=== PATIENT | male | born 1955 | race African-American/Black ===

== ENCOUNTER 2017-07-27 08:13 | Emergency (ER) | payer BC ==
--- NOTE | 2017-07-27 09:53 | ER Document Report ---
ED Head/Face/Scalp Injury - General Mode of Arrival: Ambulatory Information source: Patient - HPI Patient complains to provider of: Injury, Pain Injury to: Head Occurred: Just prior to arrival <JUANCARLOS OLSON - Last Filed: 07/27/17 12:09> <JOSH FRANKEL - Last Filed: 07/27/17 15:55> - General Chief Complaint: Head Injury Stated Complaint: HEAD INJURY Time Seen by Provider: 07/27/17 09:31 Notes: Patient is a 62-year-old male who presents to the emergency department today with complaints of right-sided facial pain after being head butted by a horse just prior to arrival. Patient states that he was feeding his horse and the horse usually swings his head from side to side playing with his food but the patient was unable to get out of the way fast enough. Patient states initially he had double vision, right-sided facial pain, and a slight headache. Patient states he does not really see a doctor very often so he is unsure of any underlying medical conditions that he may have. (JUANCARLOS OLSON) Past Medical History - General Information source: Patient - Social History Smoking Status: Never Smoker Cigarette use (# per day): No Frequency of alcohol use: None Drug Abuse: None Lives with: Family Family History: Reviewed & Not Pertinent - Past Medical History Cardiac Medical History: Reports: Hx Hypertension Past Surgical History: Reports: Hx Orthopedic Surgery <JUANCARLOS OLSON - Last Filed: 07/27/17 12:09> Review of Systems - Review of Systems Constitutional: No symptoms reported EENT: See HPI, Eye pain, Blurred vision, Double vision Cardiovascular: No symptoms reported Respiratory: No symptoms reported Gastrointestinal: No symptoms reported Genitourinary: No symptoms reported Male Genitourinary: No symptoms reported Musculoskeletal: No symptoms reported Skin: No symptoms reported Hematologic/Lymphatic: No symptoms reported Neurological/Psychological: See HPI, Headaches -: Yes All other systems reviewed and negative <JUANCARLOS OLSON - Last Filed: 07/27/17 12:09> Physical Exam <JUANCARLOS OLSON - Last Filed: 07/27/17 12:09> - HEENT Eyes: Other - The right eye has some edema to the upper eyelid. There is a rather large pterygium on the medial eye going almost the third [address] the way across the cornea from the medial edge. There is some injection or inflammation to the lateral sclera conjunctival region. After tetracaine and staining, there are several small, almost punctate areas of uptake along the inferior cornea--mostly from the middle toward the lateral inferior aspect. There is also a narrow 2 mm transverse region of uptake in the upper cornea just right of midline. <JOSH FRANKEL - Last Filed: 07/27/17 15:55> - Vital signs Vitals: Temp Pulse Resp BP Pulse Ox 97.7 F 75 18 249/94 H 99 07/27/17 08:20 07/27/17 08:20 07/27/17 08:20 07/27/17 08:20 07/27/17 08:20 - Notes Notes: Physical Exam: General: Alert, appears uncomfortable. HEENT: Normocephalic. PERRL. Extraocular movements intact. Oropharynx clear. Right sided facial swelling and tenderness over the right temporal area and zygomatic arch. pterygium over medial aspect of right eye, right eye is injected. after tetracaine, the patient states the double vision has subsided and now his vision is nearly back to normal, it is just minimally blurry. Neck: Supple. Non-tender. Respiratory: No respiratory distress. Clear and equal breath sounds bilaterally. Cardiovascular: Regular rate and rhythm. Abdominal: Normal Inspection. Non-tender. No distension. Normal Bowel Sounds. Back: Non-tender. No deformity or step off. Extremities: Moves all four extremities. Upper extremities: Normal inspection. Normal ROM. Lower extremities: Normal inspection. No edema. Normal ROM. Neurological: Normal cognition. AAOx4. Normal speech. Psychological: Normal affect. Normal Mood. Skin: Warm. Dry. Normal color. (JUANCARLOS OLSON) Course <JUANCARLOS OLSON - Last Filed: 07/27/17 12:09> <JOSH FRANKEL - Last Filed: 07/27/17 15:55> - Re-evaluation Re-evalutation: 07/27/17 11:39 PROCEEDURE: The left eye was examined using tetracaine and fluorescein stain. See the physical exam for details. The stain was irrigated out with 15 mL's of normal saline solution. Two Homatropine drops were placed on the right cornea. Two Ketorolac drops were placed in the right eye. 07/27/17 12:51 The patient was found to have quite high blood pressure. He was given 0.2 mg of clonidine in the emergency room. He is not on medications. He has not been to see a doctor in probably several years, but he reluctantly admits that he probably does have high blood pressure. He was discharged without getting a prescription of blood pressure medication due to some sudden surgeon chaos in the emergency room. I called the patient and told him what with wanted to do, he had not been to the pharmacy to fill his eyedrop prescription yet, so I informed him I would call in a prescription for him. I did call the [facility] pharmacy on [address], and called in a prescription for Norvasc 10 mg once daily #30 no refill. (JOSH FRANKEL) - Vital Signs Vital signs: Temp Pulse Resp BP Pulse Ox 98.0 F 85 16 180/75 H 100 07/27/17 12:09 07/27/17 12:09 07/27/17 12:09 07/27/17 12:09 07/27/17 12:09 Discharge <JUANCARLOS OLSON - Last Filed: 07/27/17 12:09> <JOSH FRANKEL - Last Filed: 07/27/17 15:55> - Discharge Clinical Impression: Pterygium of right eye Abrasion of right cornea Qualifiers: Encounter type: initial encounter Qualified Code(s): S05.01XA - Injury of conjunctiva and corneal abrasion without foreign body, right eye, initial encounter Facial contusion Qualifiers: Encounter type: initial encounter Qualified Code(s): S00.83XA - Contusion of other part of head, initial encounter High blood pressure Qualifiers: Hypertension type: essential hypertension Qualified Code(s): I10 - Essential ( primary) hypertension Condition: Stable Disposition: HOME, SELF-CARE Additional Instructions: Contusion: Your injury has resulted in a contusion -- a crushing of the deep tissues. No injury to important structures was detected during the physician's exam. Contusions vary in the amount of pain they cause, and in the length of time required for healing. Typically, the area will become bruised, and will remain painful to touch for two or three weeks. However, most patients are back to working and playing within a few days. After the initial period of rest and cold-packs, your symptoms (together with the doctor's recommendations) will determine how rapidly you can get back to full activity. Usually this means "do what feels okay, but don't do things that hurt." If re-examination was recommended, it's important to follow up as instructed. Call the doctor or return any time if pain increases, if swelling becomes severe, if you develop numbness or weakness in an injured extremity, or if any other alarming symptoms occur. Corneal Abrasion: You have a corneal abrasion, a scratch on the surface of the eye. The pain of a corneal abrasion feels like a sharp particle in the eye. Usually, antibiotics are placed in the eye to prevent infection. Occasionally, medication will be placed in the eye to dilate the pupil. This is done to relieve some of your discomfort and is only temporary. Pain medication may be required. Don't drive or operate machinery until you have the use of both your eyes. The abrasion usually is healed in one or two days. A follow-up examination to confirm healing is recommended. Call the doctor or return at once if you develop severe pain, decreasing vision, eye swelling, or purulent drainage. Place the ketorolac drops--one drop into the right eye every 4 hours for pain and inflammation. Place the polymyxin eyedrops-one drop in the right eye every 4 hours. Use ice packs to the contusions of your face and forehead. Follow-up with a local eye doctor if not improving. RETURN TO THE EMERGENCY ROOM IF ANY NEW OR WORSENING SYMPTOMS. Prescriptions: Amlodipine Besylate [Norvasc 10 mg Tablet] 10 mg PO DAILY #30 tablet Ketorolac Tromethamine 1 drop OD Q4 PRN #5 ml PRN Reason: Referrals: LELE PADILLA MD [Primary Care Provider] - Follow up as needed Scribe Attestation: 07/27/17 11:45 I personally performed the services described in the documentation, reviewed and edited the documentation which was dictated to the scribe in my presence, and it accurately records my words and actions. (JOSH FRANKEL) Scribe Documentation - Scribe Written by Scribe:: Aiden Pineda, 07/27/2017 1119 acting as scribe for :: Poornima <JUANCARLOS OLSON - Last Filed: 07/27/17 12:09>
--- NOTE | 2017-07-27 10:30 | RADIOLOGY REPORT (SQ) ---
EXAM DESCRIPTION: CT FACIAL AREA WITHOUT COMPLETED DATE/TIME: 07/27/2017 10:11 am REASON FOR STUDY: hit Right head and face by horse's head COMPARISON: None. TECHNIQUE: Noncontrasted images through the facial bones and orbits windowed for bone and soft tissu e. Additional coronal and sagittal reconstructed images reviewed. All images stored on PACS. All CT scanners at this facility use dose modulation, iterative reconstruction, and/or weight based d osing when appropriate to reduce radiation dose to as low as reasonably achievable (ALARA). [facility]: Dose Right [facility]: CareDose [facility]: Dose Right [facility]: Teradose 4D [facility]: [employer] RADIATION DOSE: Up-to-date CT equipment and radiation dose reduction techniques were employed. CTDIv ol: 30.4 mGy. DLP: 614 mGy-cm. mGy. LIMITATIONS: None. FINDINGS: FACIAL BONES: No fracture or bone lesion. ORBITS: Intact. No fracture. Symmetric intact globes and retroorbital soft tissues. PARANASAL SINUSES: Clear. No significant mucosal thickening, mass or fluid. No nasal polyps. Maxill bonnie sinus outlets are patent. SOFT TISSUES: No mass or edema. INFERIOR BRAIN: Limited view. No acute findings. OTHER: No other significant finding. IMPRESSION: NO ACUTE FINDINGS. TECHNICAL DOCUMENTATION: JOB ID: [id number] Quality ID # [id number]: Final reports with documentation of one or more dose reduction techniques (e.g., Au tomated exposure control, adjustment of the mA and/or kV according to patient size, use of iterative reconstruction technique) 2010 [employer]- All Rights Reserved
[2017-07-27] MEDS ORDERED: CLONIDINE HCL 0.2 MG TABLET PO ONE (10:36)
[2017-07-27] MEDS ORDERED: KETOROLAC TROMETHAMINE 0.45% 4 DROP/0.4 ML DROPERETTE OD ONE (11:09)
[2017-07-27] MEDS ORDERED: POLYMYXIN B SULFATE/TMP OPH SOLN (10 ML/ER DISP) OD ONE (11:46)
[2017-07-27 12:11] VITALS: BP 180/75
== END 2017-07-27 12:10 | disposition home or self-care (01) ==
LOC: ER 08:13
DX: I10 Essential (primary) hypertension (principal); S00.83XA Contusion of other part of head, initial encounter; S05.01XA Injury of conjunctiva and corneal abrasion without foreign body, right eye, initial encounter; H11.001 Unspecified pterygium of right eye; R51 Headache; H53.2 Diplopia; X58.XXXA Exposure to other specified factors, initial encounter
CPT/HCPCS: 99283; 70486; J3490

== ENCOUNTER → 2017-10-09 | Outpatient (CLI) | payer BC ==
--- NOTE | 2017-10-09 12:46 | RADIOLOGY REPORT (SQ) ---
EXAM DESCRIPTION: KNEE LEFT 4 VIEWS COMPLETED DATE/TIME: 10/09/2017 10:38 am REASON FOR STUDY: PAIN IN LEFT KNEE M25.562 PAIN IN LEFT KNEE COMPARISON: None. NUMBER OF VIEWS: Four views. TECHNIQUE: AP, lateral, and both oblique radiographic images acquired of the left knee. LIMITATIONS: None. FINDINGS: MINERALIZATION: Normal. BONES: A total knee arthroplasty is present. On some of the images there is some lucency adjacent to the tibial component. JOINT: There is a minimal joint effusion. SOFT TISSUES: No soft tissue swelling. No radio-opaque foreign body. OTHER: No other significant finding. IMPRESSION: Total knee arthroplasty. Cannot entirely exclude some loosening of the tibial component . There is a small joint effusion. TECHNICAL DOCUMENTATION: JOB ID: [id number] [employer]- All Rights Reserved
== END ==
LOC: OD 10:21
PROVIDERS: ATTEND Internal Medicine
DX: M25.562 Pain in left knee (principal)

== ENCOUNTER 2018-12-07 15:46 | Emergency (ER) | payer BC, MEDICARE ==
[2018-12-07] MEDS ORDERED: NORMAL SALINE 1000 ML 1,000 ML IV ONE (16:03)
[2018-12-07] MEDS ORDERED: MORPHINE SULFATE 10 MG/ML INJ IV ONE (16:03)
[2018-12-07] MEDS ORDERED: ONDANSETRON HCL INJ/PF 4 MG/2 ML SDV IV ONE (16:03)
--- NOTE | 2018-12-07 16:06 | ER Document Report ---
ED General - General Chief Complaint: Abdominal Pain Stated Complaint: ABDOMINAL PAIN Time Seen by Provider: 12/07/18 15:54 Primary Care Provider: LELE PADILLA MD [Primary Care Provider] - Follow up in 3-5 days TRAVEL OUTSIDE OF THE [place] IN LAST 30 DAYS: No - HPI Notes: Patient is a 63-year-old male that presents to the emergency department for chief complaint of left lower quadrant abdominal pain. Patient reports a sharp pain in his left lower quadrant that radiates down into his groin. The pain has been constant and gradually getting worse over the last 2-3 days. He reports pain is worse with any kind of movement or eating. He has associated nausea but denies any vomiting. He states his last bowel movement was 2-3 days ago. He denies any history of constipation in the past and denied having to strain with previous bowel movement. Patient denies fevers, chills, chest pain, shortness of breath. He denies any history of similar symptoms in the past and has no history of diverticulitis or ureterolithiasis. He is not complaining of any urinary issues including hematuria and frequency. Patient also does endorse cough and congestion for the last few days. Past Medical History: Hypertension, hyperlipidemia Past Surgical History: Left knee replacement Social History: Denies tobacco and alcohol use Family History: Reviewed and noncontributory for presenting illness Allergies: Reviewed, see documented allergy list. REVIEW OF SYSTEMS: CONSTITUTIONAL : No fever No chills No diaphoresis No recent illness EENT: No vision changes congestion No sore throat CARDIOVASCULAR: No chest pain No palpitations RESPIRATORY: No shortness of breath cough No difficulty breathing GASTROINTESTINAL: abdominal pain nausea vomiting No diarrhea GENITOURINARY: No dysuria No hematuria No difficulty urinating MUSCULOSKELETAL: No back pain No leg pain No arm pain SKIN: No rashes No lesions LYMPHATIC: No swollen, enlarged glands. NEUROLOGICAL: No lightheadedness No headache No weakness No paresthesias PSYCHIATRIC: No anxiety No depression PHYSICAL EXAMINATION: Vital signs reviewed, nursing noted reviewed. GENERAL: Appears uncomfortable and mildly diaphoretic, well-nourished HEAD: Atraumatic, normocephalic. EYES: Eyes appear normal, extraocular movements intact, sclera anicteric, conjunctiva are normal. ENT: nares patent, oropharynx clear without exudates. Moist mucous membranes. NECK: Normal range of motion, supple without lymphadenopathy LUNGS: Breath sounds clear to auscultation bilaterally and equal. No wheezes rales or rhonchi. HEART: Regular rate and rhythm without murmurs ABDOMEN: Soft, left upper and lower quadrant tenderness worse in the lower quadrant. No rebound, guarding, or rigidity. No masses appreciated. EXTREMITIES: Nontender, good range of motion, no pitting or edema. NEUROLOGICAL: No focal neurological deficits. Moves all extremities spontaneously Motor and sensory grossly intact on exam. PSYCH: Normal mood, normal affect. SKIN: Warm, Dry, normal turgor, no rashes or lesions noted on exposed skin - Related Data Allergies/Adverse Reactions: No Known Allergies Allergy (Verified 12/07/18 17:39) Past Medical History - Social History Smoking Status: Never Smoker Family History: Reviewed & Not Pertinent Patient has suicidal ideation: No Patient has homicidal ideation: No - Past Medical History Cardiac Medical History: Reports: Hx Hypercholesterolemia, Hx Hypertension Renal/ Medical History: Denies: Hx Peritoneal Dialysis Past Surgical History: Reports: Hx Orthopedic Surgery Physical Exam - Vital signs Vitals: Temp Pulse Resp BP Pulse Ox 98.3 F 77 20 191/92 H 98 12/07/18 16:00 12/07/18 16:00 12/07/18 16:00 12/07/18 16:00 12/07/18 16:00 Course - Re-evaluation Re-evalutation: 12/07/18 16:05 Vitals reviewed. Nursing notes reviewed. Patient is afebrile but does appear mildly diaphoretic and uncomfortable. He will be started on IV fluids, Zofran and morphine for symptom medic management. 12/07/18 18:47 Patient's blood work is unremarkable. CT shows an epiploic appendage-itis which is causing patient's pain. These findings were discussed with Dr. Velez who recommends pain management and outpatient follow-up with primary care. Patient will be given Percocet for pain control at home. He did feel better after receiving morphine in the ED. on reevaluation his abdomen is milling machine tender in the left lower quadrant but not in the left upper quadrant and he is no longer diaphoretic. Patient had incidental finding of changes in his left lower lung and prostate concerning for underlying neoplasm which I did discuss with him and recommend close follow-up for further testing with his primary care doctor. The CT scan also read possible underlying pneumonia and in the heading of patient current congestion he will be treated with azithromycin for possible underlying pneumonia. He has no leukocytosis and is not septic. He is stable at discharge. Laboratory 12/07/18 12/07/18 12/07/18 15:55 15:55 17:45 WBC 8.6 RBC 4.52 Hgb 12.2 L Hct 36.2 L MCV 80 MCH 27.1 MCHC 33.8 RDW 15.3 H Plt Count 342 Seg Neutrophils % 62.4 Lymphocytes % 22.8 Monocytes % 12.0 Eosinophils % 1.9 Basophils % 0.9 Absolute Neutrophils 5.4 Absolute Lymphocytes 2.0 Absolute Monocytes 1.0 Absolute Eosinophils 0.2 Absolute Basophils 0.1 Sodium 143.2 Potassium 4.1 Chloride 108 H Carbon Dioxide 26 Anion Gap 9 BUN 12 Creatinine 1.07 Est GFR ( Amer) > 60 Est GFR (Non-Af Amer) > 60 Glucose 97 Calcium 9.5 Total Bilirubin 0.6 Direct Bilirubin 0.4 Neonat Total Bilirubin Not Reportable Neonat Direct Bilirubin Not Reportable Neonat Indirect Bili Not Reportable AST 44 ALT 24 Alkaline Phosphatase 85 Total Protein 8.5 H Albumin 4.5 Lipase 188.6 Urine Color STRAW Urine Appearance CLEAR Urine pH 6.0 Ur Specific [place] 1.029 Urine Protein NEGATIVE Urine Glucose (UA) NEGATIVE Urine Ketones NEGATIVE Urine Blood NEGATIVE Urine Nitrite NEGATIVE Urine Bilirubin NEGATIVE Urine Urobilinogen NEGATIVE Ur Leukocyte Esterase NEGATIVE Urine WBC (Auto) 1 Urine Mucus (Auto) RARE Urine Ascorbic Acid NEGATIVE Abdomen/Pelvis CT 12/07/18 16:01 IMPRESSION: 1. Epiploic appendagitis adjacent to the colon at the left lower quadrant. 2. Nodular appearance of the prostate indenting the base of the urinary bladder. Please correlate with PSA level to exclude neoplasm. 3. Airspace opacities at the left lung, may be secondary to multifocal pneumonia or atelectasis. Followup CT thorax in 4 weeks recommended to ensure complete resolution exclude underlying neoplasm. - Vital Signs Vital signs: Temp Pulse Resp BP Pulse Ox 98.3 F 77 19 169/84 H 100 12/07/18 16:00 12/07/18 16:00 12/07/18 18:02 12/07/18 18:02 12/07/18 18:02 - Laboratory Result Diagrams: 12/07/18 15:55 12/07/18 15:55 Laboratory results interpreted by me: 12/07/18 12/07/18 15:55 15:55 Hgb 12.2 L Hct 36.2 L RDW 15.3 H Chloride 108 H Total Protein 8.5 H Discharge - Discharge Clinical Impression: Epiploic appendagitis, Nodular prostate, Left pulmonary lesion Pneumonia Qualifiers: Pneumonia type: due to unspecified organism Laterality: left Lung location: lower lobe of lung Qualified Code(s): J18.1 - Lobar pneumonia, unspecified organism Condition: Stable Disposition: HOME, SELF-CARE Instructions: Abdominal Pain ([facility]) Additional Instructions: Please return to the emergency department if you have any worsening, or concern of your symptoms. Please return to the emergency department if you develop chest pain, difficulty breathing, severe abdominal pain, or ongoing vomiting. Please follow-up with your primary care physician in 2-3 days and any other recommended physicians. If prescribed, take all medications as directed. If you have any questions or concerns do not hesitate to return the emergency department for evaluation. There was some nodular changes to your prostate hand you need to have a PSA screening test performed by your primary care doctor for further diagnosis of possible underlying prostate cancer. There is also an incidental finding of changes to your left lower lung and it is recommended that you get a CT scan of the chest in the next 4 weeks to evaluate for clearing. Prescriptions: Azithromycin [Zithromax 250 mg Tablet] 250 mg PO ASDIR PRN #6 tablet PRN Reason: Oxycodone HCl/Acetaminophen [Percocet 5-325 mg Tablet] 1 tab PO Q4H PRN #15 tablet PRN Reason: Referrals: LELE PADILLA MD [Primary Care Provider] - Follow up in 3-5 days
[2018-12-07 16:08] LABS: ABSOLUTE BASOPHILS # (AUTO) 0.1 10^3/uL (0.0-0.2); ABSOLUTE EOSINOPHILS # (AUTO) 0.2 10^3/uL (0.0-0.6); ABSOLUTE NEUT (AUTO) 5.4 10^3/uL (1.7-8.2); BASOPHILS % (AUTO) 0.9 % (0-2); EOSINOPHILS % (AUTO) 1.9 % (0-6); HEMATOCRIT 36.2 % (37.9-51.0); HEMOGLOBIN 12.2 g/dL (13.5-17.0); LYMPHOCYTES % (AUTO) 22.8 % (13-45); MEAN CORPUSCULAR HEMOGLOBIN 27.1 pg (27.0-33.4); MEAN CORPUSCULAR HGB CONC 33.8 g/dL (32.0-36.0); MEAN CORPUSCULAR VOLUME 80 fl (80-97); PLATELET COUNT 342 10^3/uL (150-450); RED BLOOD COUNT 4.52 10^6/uL (4.35-5.55); RED CELL DISTRIBUTION WIDTH 15.3 % (11.5-14.0); SEGMENTED NEUTROPHILS % (AUTO) 62.4 % (42-78); TOTAL CELLS COUNTED % (AUTO) 100 %; WHITE BLOOD COUNT 8.6 10^3/uL (4.0-10.5)
[2018-12-07 16:22] LABS: ALANINE AMINOTRANSFERASE 24 U/L (21-72); ALBUMIN 4.5 g/dL (3.5-5.0); ALKALINE PHOSPHATASE 85 U/L (38-126); ANION GAP 9 (5-19); ASPARTATE AMINO TRANSFERASE 44 U/L (17-59); BILIRUBIN,DIRECT 0.4 mg/dL (0.0-0.4); BILIRUBIN,TOTAL 0.6 mg/dL (0.2-1.3); BLOOD UREA NITROGEN 12 mg/dL (7-20); CALCIUM 9.5 mg/dL (8.4-10.2); CARBON DIOXIDE 26 mmol/L (22-30); CHLORIDE 108 mmol/L (98-107); GLUCOSE 97 mg/dL (75-110); LIPASE 188.6 U/L (23-300); POTASSIUM 4.1 mmol/L (3.6-5.0); SODIUM 143.2 mmol/L (137-145); TOTAL PROTEIN 8.5 g/dL (6.3-8.2)
--- NOTE | 2018-12-07 17:49 | RADIOLOGY REPORT (SQ) ---
EXAM DESCRIPTION: CT ABD/PELVIS WITH IV ONLY COMPLETED DATE/TIME: 12/07/2018 5:26 pm REASON FOR STUDY: LLQ pain COMPARISON: CT angiogram chest 07/26/2010. TECHNIQUE: CT scan of the abdomen and pelvis performed using helical scanning technique with dynamic intravenous contrast injection. No oral contrast. Images reviewed with lung, soft tissue, and bone windows. Reconstructed coronal and sagittal MPR images reviewed. Delayed images for evaluation of the urinary system also acquired. All images stored on PACS. All CT scanners at this facility use dose modulation, iterative reconstruction, and/or weight based d osing when appropriate to reduce radiation dose to as low as reasonably achievable (ALARA). [facility]: Dose Right [facility]: CareDose [facility]: Dose Right [facility]: Teradose 4D [facility]: [employer] CONTRAST TYPE AND DOSE: contrast/concentration: Isovue 350.00 mg/ml; Total Contrast Delivered: 100.0 ml; Total Saline Delivered: 72.0 ml RENAL FUNCTION: Creatinine 1.07 RADIATION DOSE: CT Rad equipment meets quality standard of care and radiation dose reduction techniq ues were employed. CTDIvol: 9.0 - 12.8 mGy. DLP: 1284 mGy-cm.. LIMITATIONS: None. FINDINGS: LOWER CHEST: Airspace opacities are seen at the left upper lobe and left lower lobe. No p leural effusion. LIVER: Normal size. No masses. No dilated ducts. SPLEEN: Normal size. PANCREAS: No significant calcifications. No adjacent inflammation or peripancreatic fluid collections . Pancreatic duct not dilated. GALLBLADDER: Present. ADRENAL GLANDS: No significant masses or asymmetry. RIGHT KIDNEY AND URETER: No solid masses. There is a 1.5 cm cyst at the interpolar region of the rig ht kidney No significant calcifications. No hydronephrosis or hydroureter. LEFT KIDNEY AND URETER: No solid masses. There is a 3.1 cm cyst at the inferior pole of the left kid mumtaz No significant calcifications. No hydronephrosis or hydroureter. AORTA AND VESSELS: No abdominal aortic aneurysm. RETROPERITONEUM: No retroperitoneal adenopathy, hemorrhage or masses. BOWEL AND PERITONEAL CAVITY: No dilated bowel loops to suggest obstruction. There is increased densi ty within the omental fat adjacent to the colon at the left lower quadrant, most consistent with epi ploic appendagitis. No free fluid or free air. APPENDIX: Normal. PELVIS: The urinary bladder is partially distended. There is nodular appearance of the prostate inde nting the base of the urinary bladder. No free fluid. ABDOMINAL WALL: Small fat containing bilateral inguinal hernias. BONES: Multilevel degenerative changes at the spine. IMPRESSION: 1. Epiploic appendagitis adjacent to the colon at the left lower quadrant. 2. Nodular appearance of the prostate indenting the base of the urinary bladder. Please correlate wi th PSA level to exclude neoplasm. 3. Airspace opacities at the left lung, may be secondary to multifocal pneumonia or atelectasis. Fol lowup CT thorax in 4 weeks recommended to ensure complete resolution exclude underlying neoplasm. TECHNICAL DOCUMENTATION: JOB ID: [id number] CT-64 Quality ID # [id number]: Final reports with documentation of one or more dose reduction techniques (e.g., Au tomated exposure control, adjustment of the mA and/or kV according to patient size, use of iterative reconstruction technique) 2010 [employer]- All Rights Reserved Reading location - IP/workstation name: [email or web address]
[2018-12-07 18:21] LABS: APPEARANCE,URINE CLEAR; BILIRUBIN,URINE NEGATIVE (NEGATIVE); COLOR,URINE STRAW; GLUCOSE, URINE NEGATIVE (NEGATIVE); KETONES,URINE NEGATIVE (NEGATIVE); LEUKOCYTE ESTERASE,URINE NEGATIVE (NEGATIVE); NITRITE,URINE NEGATIVE (NEGATIVE); PROTEIN,URINE NEGATIVE (NEGATIVE); URINE SPECIFIC GRAVITY 1.029; UROBILINOGEN,URINE NEGATIVE mg/dL (<2.0)
[2018-12-07 19:20] VITALS: BP 169/76
== END 2018-12-07 19:21 | disposition home or self-care (01) ==
LOC: ER 15:46
DX: J18.1 Lobar pneumonia, unspecified organism (principal); K63.89 Other specified diseases of intestine; N40.2 Nodular prostate without lower urinary tract symptoms; J98.4 Other disorders of lung; R10.9 Unspecified abdominal pain; R10.32 Left lower quadrant pain; R10.30 Lower abdominal pain, unspecified; R11.0 Nausea; I10 Essential (primary) hypertension
CPT/HCPCS: 99284; 96361; 96374; 96375; 36415; 83690; 85025; 80053; 81001; 74177; J2270; J2405; J7030

== ENCOUNTER 2019-06-03 11:21 | Emergency (ER) | payer MEDICARE ==
--- NOTE | 2019-06-03 12:52 | ER Document Report ---
ED Medical Screen (RME) - General Chief Complaint: Knee Pain Stated Complaint: KNEE PAIN Time Seen by Provider: 06/03/19 12:45 Primary Care Provider: LELE PADILLA MD [Primary Care Provider] - Follow up as needed Notes: HPI: 64-year-old male with a history of hypertension here for left knee pain for the last few months worse today after he was walking and felt a pop in the area now can no longer weight-bear. History of a left knee replacement done in [place] 15 years ago. His PCP recently did x-ray it as they are working up his chronic worsening left knee pain and felt like the hardware is loosening in the replacement. He was otherwise pain controlled with Aleve until today when symptoms became dramatically worse. No fever. No history of gout. No other fall or trauma. He does not currently have an orthopedist. No history of diabetes. No recent abx or steroids. no blood thinners. no other associated sx. ROS neg to include 10 systems, unless mentioned in the hpi. PE:>>>> PHYSICAL_EXAM: GENERAL_APPEARANCE: well_nourished, alert, cooperative, no_acute_distress, mild_obvious_discomfort. pleasant, middle aged black male, smiling, speaking in full sentences, in no sign of resp distress, appears uncomfortable but not toxic VITALS: reviewed, see vital signs table. HEAD: no_swelling\tenderness on the head. normocephalic. atraumatic. no felder signs. no raccoons eyes. EYES: PERRL, EOMI, conjunctiva_clear. NOSE: no_nasal_discharge. MOUTH: (-)decreased moisture. THROAT: no_tonsilar_inflammation, no_airway_obstruction. NECK: supple, no_neck_tenderness, full rom. full strength. BACK: no_back_tenderness. CHEST_WALL: no_chest_tenderness. no overlying skin changes LUNGS: no_wheezing, ctab (-)accessory muscle use, good air exchange bilateral. HEART: normal_rate, normal_rhythm, EXTREMITIES: strength 5/5 in all_extremities, good pulses in all_extremities, no_swelling\tenderness in the extremities other than over med and lat jt lines of left knee. there is mild swelling. well healed midline incision. no erythema, no sign of septic jt, no_edema. full rom with pain max on flexion. gait not assessed good pulses. brisk cap refill. 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 neg mckenna sign. no foot drop. NEURO: motor and sensation intact, cranial nerves 2-12 intact, cerebellar fxn intact SKIN: warm, dry, good_color, no_rash. MENTAL_STATUS: speech_clear, oriented_X_3, normal_affect, responds_appropriately to questions. MDM: I have ordered labs and initial work-up and patient will be transferred to the main ER for further work-up. I have greeted and performed a rapid initial assessment of this patient. A comprehensive ED assessment and evaluation of the patient, analysis of test results and completion of medical decision making process will be conducted by an additional ED providers. Documentation achieved through voice recording which my lead to some occasional accidental typographical errors. Extensive efforts have been made to proof read documentation to make sure these are the least as possible Temp Pulse Resp BP Pulse Ox 06/03/19 11:49 98.4 F 69 17 157/81 H 100 Category Date Time Status KNEE LEFT 4 VIEW [RAD] Stat Exams 06/03/19 12:46 Completed Morphine Sulfate [Morphine 10 mg/ml Inj] Med 06/03/19 12:58 Discontinued 4 mg IM NOW ONE TRAVEL OUTSIDE OF THE [place] IN LAST 30 DAYS: No - Related Data Allergies/Adverse Reactions: No Known Allergies Allergy (Verified 06/03/19 11:22) Past Medical History - Past Medical History Cardiac Medical History: Reports: Hx Hypercholesterolemia, Hx Hypertension Renal/ Medical History: Denies: Hx Peritoneal Dialysis Past Surgical History: Reports: Hx Orthopedic Surgery Physical Exam - Vital signs Vitals: Temp Pulse Resp BP Pulse Ox 98.4 F 69 17 157/81 H 100 06/03/19 11:49 06/03/19 11:49 06/03/19 11:49 06/03/19 11:49 06/03/19 11:49 Course - Vital Signs Vital signs: Temp Pulse Resp BP Pulse Ox 98.4 F 69 17 157/81 H 100 06/03/19 11:49 06/03/19 11:49 06/03/19 11:49 06/03/19 11:49 06/03/19 11:49 Doctor's Discharge - Discharge Referrals: LELE PADILLA MD [Primary Care Provider] - Follow up as needed
[2019-06-03] MEDS ORDERED: MORPHINE SULFATE 10 MG/ML INJ IM ONE (12:58)
--- NOTE | 2019-06-03 13:52 | RADIOLOGY REPORT (SQ) ---
EXAM DESCRIPTION: KNEE LEFT 4 VIEW COMPLETED DATE/TIME: 06/03/2019 1:19 pm REASON FOR STUDY: pain COMPARISON: None. NUMBER OF VIEWS: Four views. TECHNIQUE: AP, lateral, and both oblique radiographic images acquired of the left knee. LIMITATIONS: None. FINDINGS: MINERALIZATION: Decreased. BONES: No acute fracture or dislocation. Postsurgical changes from the total knee arthroplasty. The re is lucency about the tibial component stem seen on a single projection measuring approximately 7 m m. Scattered calcifications, likely postsurgical. JOINT: Mild joint effusion. SOFT TISSUES: No soft tissue swelling. No radio-opaque foreign body. OTHER: No other significant finding. IMPRESSION: Postsurgical changes from the total knee arthroplasty. Lucency about the tibial compone nt stem may represent hardware loosening. Mild joint effusion. No fracture. TECHNICAL DOCUMENTATION: JOB ID: [id number] [employer]- All Rights Reserved Reading location - IP/workstation name: [email or web address]
[2019-06-03] MEDS ORDERED: HYDROCODONE/ACETAMINOPHEN 5-325 MG TABLET PO ONE (15:47)
[2019-06-03] MEDS ORDERED: KETOROLAC TROMETHAMINE 60 MG/2 ML SDV IM ONE (15:47)
[2019-06-03] MEDS ORDERED: DEXAMETHASONE SOD PHOS INJ 10 MG/1 ML VIAL IM ONE (15:47)
--- NOTE | 2019-06-03 15:54 | ER Document Report ---
ED Extremity Problem, Lower - General Chief Complaint: Knee Pain Stated Complaint: KNEE PAIN Time Seen by Provider: 06/03/19 12:45 Primary Care Provider: [facility] [Provider Group] - Follow up as needed LELE PADILLA MD [Primary Care Provider] - Follow up as needed Mode of Arrival: Wheelchair Information source: Patient Notes: 64-year-old male presented to ED for increasing chronic knee pain with total knee replacement about 15 years ago. Patient states that his PCP did a x-ray and they were working him up for chronic left knee pain but wanted to get records from [facility] who did the knee replacement. He states they have not gotten the paperwork yet from the surgeon. He states the pain is much worse before coming into the emergency room and the Aleve did not help so his primary care told him to come to the emergency room. Patient states she has not had any recent falls any recent injuries or any reason for this increase in pain. Patient does not have a current family support specialist. TRAVEL OUTSIDE OF THE [place] IN LAST 30 DAYS: No - HPI Patient complains to provider of: Pain, Swelling. No: Injury Location: Knee - Left Occurred: Other - Longtime chronic worse for the last 2 months much worse today Onset/Duration: Persistent Quality of pain: Sharp, Throbbing Severity: Severe Pain Level: 5 Recent injury: No Associated symptoms: Painful ambulation, Unable to bear weight Exacerbated by: Hanging down, Movement, Walking Relieved by: Nothing - Related Data Allergies/Adverse Reactions: No Known Allergies Allergy (Verified 06/03/19 11:22) Past Medical History - General Information source: Patient - Social History Smoking Status: Never Smoker Frequency of alcohol use: None Drug Abuse: None Lives with: Family Family History: Reviewed & Not Pertinent Patient has suicidal ideation: No Patient has homicidal ideation: No - Past Medical History Cardiac Medical History: Reports: Hx Hypercholesterolemia, Hx Hypertension Pulmonary Medical History: Reports: None EENT Medical History: Reports: None Neurological Medical History: Reports: None Endocrine Medical History: Reports: None Renal/ Medical History: Reports: None Malignancy Medical History: Reports None GI Medical History: Reports: None Musculoskeletal Medical History: Reports Hx Musculoskeletal Deformity, Reports Hx Musculoskeletal Trauma Skin Medical History: Reports None Psychiatric Medical History: Reports: None Traumatic Medical History: Reports: None Infectious Medical History: Reports: None Past Surgical History: Reports: Hx Orthopedic Surgery - left tkr - Immunizations Immunizations up to date: Yes Review of Systems - Review of Systems Constitutional: No symptoms reported EENT: No symptoms reported Cardiovascular: No symptoms reported Respiratory: No symptoms reported Gastrointestinal: No symptoms reported Genitourinary: No symptoms reported Male Genitourinary: No symptoms reported Musculoskeletal: Joint pain, Joint swelling Skin: No symptoms reported Hematologic/Lymphatic: No symptoms reported Neurological/Psychological: No symptoms reported Physical Exam - Vital signs Vitals: Temp Pulse Resp BP Pulse Ox 98.4 F 69 17 157/81 H 100 06/03/19 11:49 06/03/19 11:49 06/03/19 11:49 06/03/19 11:49 06/03/19 11:49 Interpretation: Normal - General General appearance: Appears well, Alert - HEENT Head: Normocephalic, Atraumatic Eyes: Normal Pupils: PERRL - Respiratory Respiratory status: No respiratory distress Chest status: Nontender Breath sounds: Normal Chest palpation: Normal - Cardiovascular Rhythm: Regular Heart sounds: Normal auscultation Murmur: No - Abdominal Inspection: Normal Distension: No distension Bowel sounds: Normal Tenderness: Nontender Organomegaly: No organomegaly - Back Back: Normal, Nontender - Extremities General upper extremity: Normal inspection, Nontender, Normal color, Normal ROM, Normal temperature General lower extremity: Normal color, Normal temperature. No: Surya's sign Knee: Tender, Pain with ROM, Patellar tendon intact, Tender joint line, Unable to bear weight. No: Abrasion, Deformity, Dislocation, Drawer's test instability, Ecchymosis, Instability, Laceration, Laxity with valgus stress, Popliteal fossa tender - Neurological Neuro grossly intact: Yes Cognition: Normal Orientation: AAOx4 [place] Coma Scale Eye Opening: Spontaneous [place] Coma Scale Verbal: Oriented [place] Coma Scale Motor: Obeys Commands [place] Coma Scale Total: 15 Speech: Normal Motor strength normal: LUE, RUE, LLE, RLE Sensory: Normal - Psychological Associated symptoms: Normal affect, Normal mood - Skin Skin Temperature: Warm Skin Moisture: Dry Skin Color: Normal Course - Vital Signs Vital signs: Temp Pulse Resp BP Pulse Ox 98.1 F 55 L 17 175/95 H 100 06/03/19 16:02 06/03/19 16:02 06/03/19 11:49 06/03/19 16:02 06/03/19 16:02 - Diagnostic Test Radiology reviewed: Image reviewed, Reports reviewed Procedures - Immobilization Left Knee Time completed: 16:07 Pre-Proc Neuro Vasc Exam: Normal Immobilizer type: Crutches, Knee immobilizer Performed by: KATHY Post-Proc Neuro Vasc Exam: Normal Alignment checked and good: Yes Discharge - Discharge Clinical Impression: Chronic pain of left knee Condition: Stable Disposition: HOME, SELF-CARE Additional Instructions: Chronic Pain Control Stress, inactivity, and depression make pain more severe regardless of the cause of the pain. Stress and poor physical condition can cause pain such as headaches and backache. Relaxation: Rest in a quiet place with your eyes closed for 20 minutes twice daily. Concentrate on a pleasant image, or simply "feel" your breathing. Clear your mind. Stress management: Deal with your "stressors." Either take action, or eliminate the stressor from your life. Don't let things hang over you. Accept those things you can't change. Nutrition: Eat small, balanced meals -- don't skip, don't overeat. Meals should be high-carbohydrate, low-sugar, low-fat. Exercise: Exercise helps painful conditions and eases stress. Get 30 minutes of moderate exercise, five days a week. Do an activity that does not flare your pain. Precautions: Pain which continues to disrupt daily activities, or which changes in nature, requires a medical evaluation. Pain Clinic referral is available. We do not manage chronic pain in the Emergency Department. We will try to appropriately help you through an acute flare of your chronic painful condition, but for on-going chronic pain that does not improve, you will need to see your private doctor or dip painter. We do not provide repeated medication management of chronic painful conditions. If you wish, we can provide the name of local pain management physicians. KNEE IMMOBILIZING SPLINT: The knee immobilizing splint will protect the injury while healing begins. This type of splint does not allow the knee to bend at all. No running or sports will be possible. If the splint allows painfree walking, it's giving adequate protection. If there is still significant pain, crutches may be needed as well. Don't do anything that hurts. Adjusted the splint, if necessary. The stiffeners on the sides are attached with Velcro, so they can be easily moved to adjust for thigh and calf size. If you need help with these adjustments, come back. You will lose muscle strength in the thigh while using this splint. The doctor will advise you if it's safe to do isometric knee exercises while you use it. USE OF CRUTCHES: The doctor has recommended that you not bear weight at this time. You will need to use crutches. Adjust the crutches so the tops come to about two inches under the armpit while you are standing upright. Use your hands -- not your armpits -- to support your weight. To get into a chair, support yourself with one crutch on the injured side. Hold the chair with the other hand, then lower yourself while putting all your weight on the good leg. Going up stairs is `good leg up, step up, then bring up crutches and bad leg.' Down stairs is `bad leg and crutches down, then bring good leg down.' If you develop numbness or swelling in an arm or hand, you are using the crutches incorrectly. Return if you are having any problems with the crutches. ICE & ELEVATION: Apply ice packs frequently against the painful area. Many different schedules are recommended, such as "20 minutes on, 20 minutes off" or "one hour ice, two hours rest." If you need to work, you may need to go longer between ice treatments. You should plan to have the area ice packed AT LEAST one-fourth of the time. The ice should be applied over the wrap, tape, or splint, or over a layer of cloth -- not directly against the skin. Some ice bags have a built-in cloth and can be put directly on the skin. Your injured part should be elevated as much as possible over the next 48 hours. Try to keep the injury above the level of the heart. Avoid use of the injured area. Elevation and rest will decrease the swelling. USE OF DSRK-BKS-KNZOGSS IBUPROFEN: Ibuprofen (Advil, Nuprin, Medipren, Motrin IB) is a medication for fever and pain control. In addition, it has anti- inflammatory effects which may be beneficial, especially in the treatment of injuries. It's best to take ibuprofen with food. Persons with ulcer disease or allergy to aspirin should notify their physician of this before taking ibuprofen. Ibuprofen can be given every four to six hours, for a total of four doses daily. Age Pain or fever dose Antiinflammatory dose 6-8 yr 200 mg (1 tab) 200 mg (1 tab) 9-11 yr 200 mg (1 tab) 200-400 mg (1-2 tab) 11-14 yr 200-400 mg (1-2 tab) 400 mg (2 tab) 15-adult 400 mg (2 tab) 600 mg (3 tab) ORAL NARCOTIC MEDICATION: You have been given a prescription for pain control. This medication is a narcotic. It's best taken with food, as nausea can result if taken on an empty stomach. Don't operate machinery or drive within six hours of taking this medication. Do not combine this medicine with alcohol, or with any medication which can cause sedation (such as cold tablets or sleeping pills) unless you get permission from the physician. Narcotics tend to cause constipation. If possible, drink plenty of fluids and eat a diet high in fiber and fruits. Please be aware that prescription narcotics also have the potential for abuse. People become addicted to these medications because of the general sense of wellbeing that they induce. This feeling along with a significant reduction in tension, anxiety, and aggression provides a stimulating seductive quality to these drugs. Once your pain is under control, we encourage you to discard your unused narcotics. Toradol Injection You have been given an injection of ketorolac tromethamine (Toradol). This is an excellent, safe drug for pain control. It also has potent antiinflammatory action. You should have significant pain relief within about one hour. Toradol is not addicting and is non-sedating. It does not interfere with driving or work. Call or return if you develop itching, hives, shortness of breath, or rash. STEROID MEDICATION: You have been given an injection of medicine of the cortisone/steroid class. This medication is used to control inflammation or allergy. It is often continued as a pill for a short period of time, until the acute process subsides. There are usually no side effects from short-term use of cortisone-like medications. Some persons feel an increased sense of well-being and are not sleepy at bedtime. Long-term use of cortisone medications is best avoided, unless required for a severe condition. If your condition does not remit, or relapses after the course of corticosteroid medication, you should consult your physician. Knee Exercise Program It's important to strengthen the muscles around the knee. This protects the injured area and stabilizes a knee that's been loosened by ligament injury. EARLY - Even when motion of the knee is painful (even when wearing a splint), you can begin isometric "quads" exercises. While sitting, hold the knee out, and contract the muscles to stiffen it. It shouldn't be straightened all the way -- stiffen it in a slightly-bent position. Lift the leg and draw a "T" with your foot, up to 100 times. When it becomes easy, add a weight on your foot. LATE - When the doctor advises you, you can begin moving the knee against resistance. The front muscles (quadriceps) are most important. While sitting at a [employer], straighten the knee forcefully while pushing a weight up with your ankle. Start with five to 10 pounds. Do 10 to 20 repetitions, increasing the weight as tolerated. Don't use more weight than is comfortable! Over a few weeks, work up to 35 to 50 pounds. Athletes should try to reach 70 to 90 pounds. FOLLOW-UP CARE: If you have been referred to a physician for follow-up care, call the physicians office for an appointment as you were instructed or within the next two days. If you experience worsening or a significant change in your symptoms, notify the physician immediately or return to the Emergency Department at any time for re-evaluation. Prescriptions: Hydrocodone/Acetaminophen [[place] 5-325 mg Tablet] 1 tab PO Q6HP PRN #7 tablet PRN Reason: For Pain Scale 3-5 Forms: Elevated Blood Pressure Referrals: LELE PADILLA MD [Primary Care Provider] - Follow up as needed [facility] [Provider Group] - Follow up as needed
[2019-06-03 16:06] VITALS: BP 175/95
== END 2019-06-03 16:06 | disposition home or self-care (01) ==
LOC: ER 11:21
DX: M25.562 Pain in left knee (principal); G89.29 Other chronic pain; Z96.652 Presence of left artificial knee joint; M25.40 Effusion, unspecified joint; I10 Essential (primary) hypertension
CPT/HCPCS: 73564; L1830; J1885; J2270; J1100; A9270; 96372; 99283

== ENCOUNTER 2019-08-12 14:03 | Emergency (ER) | payer MEDICARE ==
[2019-08-12] MEDS ORDERED: ONDANSETRON HCL INJ/PF 4 MG/2 ML SDV IV ONE ×2 (14:35→18:14)
--- NOTE | 2019-08-12 14:38 | ER Document Report ---
ED Medical Screen (RME) - General Chief Complaint: Nausea/Vomiting Stated Complaint: VOMITING Time Seen by Provider: 08/12/19 14:30 Primary Care Provider: LELE PADILLA MD [Primary Care Provider] - Follow up as needed Notes: Patient is a 64-year-old male who presents to the emergency department with a chief complaint of vomiting. He started vomiting this morning. He has been vomiting every 5 to 10 minutes. He denies any pain, but states that he feels shaky. Patient had knee surgery about 3 weeks ago and was on narcotic pain medicine and was on stool softeners. Patient states that he had a bowel movement this morning, but has been straining to go to the bathroom. Patient has also had a decreased appetite for the past few weeks. According to his , he has lost quite a bit of weight. Exam: Soft nontender abdomen. Patient vomiting. I have greeted and performed a rapid initial assessment of this patient. A comprehensive ED assessment and evaluation of the patient, analysis of test results and completion of medical decision making process will be conducted by an additional ED providers. TRAVEL OUTSIDE OF THE [place] IN LAST 30 DAYS: No - Related Data Allergies/Adverse Reactions: No Known Allergies Allergy (Verified 08/12/19 14:19) Home Medications: Pt states he did not bring a list of medication and not sure of home meds. Past Medical History - Past Medical History Cardiac Medical History: Reports: Hx Hypercholesterolemia, Hx Hypertension Renal/ Medical History: Denies: Hx Peritoneal Dialysis Musculoskeltal Medical History: Reports Hx Musculoskeletal Deformity, Reports Hx Musculoskeletal Trauma Past Surgical History: Reports: Hx Orthopedic Surgery - left tkr - Immunizations Immunizations up to date: Yes Physical Exam - Vital signs Vitals: Temp Pulse Resp BP Pulse Ox 98.2 F 90 19 140/73 H 100 08/12/19 14:07 08/12/19 14:07 08/12/19 14:07 08/12/19 14:07 08/12/19 14:07 Course - Vital Signs Vital signs: Temp Pulse Resp BP Pulse Ox 98.2 F 90 19 140/73 H 100 08/12/19 14:07 08/12/19 14:07 08/12/19 14:07 08/12/19 14:07 08/12/19 14:07 Doctor's Discharge - Discharge Referrals: LELE PADILLA MD [Primary Care Provider] - Follow up as needed
[2019-08-12 15:23] LABS: ABSOLUTE BASOPHILS # (AUTO) 0.1 10^3/uL (0.0-0.2); ABSOLUTE MONOCYTES (AUTO) 0.3 10^3/uL (0.1-1.4); ABSOLUTE NEUT (AUTO) 8.6 10^3/uL (1.7-8.2); BASOPHILS % (AUTO) 1.1 % (0-2); EOSINOPHILS % (AUTO) 0.2 % (0-6); HEMOGLOBIN 10.7 g/dL (13.5-17.0); LYMPHOCYTES % (AUTO) 10.4 % (13-45); MEAN CORPUSCULAR HGB CONC 33.4 g/dL (32.0-36.0); MEAN CORPUSCULAR VOLUME 81 fl (80-97); MONOCYTES % (AUTO) 2.6 % (3-13); PLATELET COUNT 506 10^3/uL (150-450); RED BLOOD COUNT 3.95 10^6/uL (4.35-5.55); SEGMENTED NEUTROPHILS % (AUTO) 85.7 % (42-78); TOTAL CELLS COUNTED % (AUTO) 100 %
[2019-08-12 15:46] LABS: ALBUMIN 4.6 g/dL (3.5-5.0); ALKALINE PHOSPHATASE 96 U/L (38-126); ANION GAP 14 (5-19); ASPARTATE AMINO TRANSFERASE 21 U/L (17-59); BILIRUBIN,DIRECT 0.2 mg/dL (0.0-0.4); BILIRUBIN,TOTAL 0.4 mg/dL (0.2-1.3); BLOOD UREA NITROGEN 16 mg/dL (7-20); CALCIUM 10.2 mg/dL (8.4-10.2); CARBON DIOXIDE 21 mmol/L (22-30); CHLORIDE 106 mmol/L (98-107); CREATINE KINASE 107 U/L (55-170); GLUCOSE 136 mg/dL (75-110)
[2019-08-12] MEDS ORDERED: NORMAL SALINE 1000 ML 1,000 ML IV ONE ×3 (16:06→20:48)
[2019-08-12] MEDS ORDERED: PROMETHAZINE HCL INJ 25 MG/1 ML VIAL IV ONE (16:07)
--- NOTE | 2019-08-12 16:10 | ER Document Report ---
ED General <RAUL MARIN - Last Filed: 08/13/19 02:35> - General TRAVEL OUTSIDE OF THE [place] IN LAST 30 DAYS: No - Related Data Home Medications: Pt states he did not bring a list of medication and not sure of home meds. Recent medications include Vicodin, Norvasc <JOELLEN HINES - Last Filed: 08/13/19 15:15> - General Chief Complaint: Nausea/Vomiting Stated Complaint: VOMITING Time Seen by Provider: 08/12/19 14:30 Primary Care Provider: LELE PADILLA MD [Primary Care Provider] - Follow up as needed - HPI Notes: Patient is a 64-year-old male who presents the emergency department for evaluation of nausea and vomiting. It started today. He is status post left total knee replacement a few weeks ago. Generally his wound is been healing well, he is been going to physical therapy. No fevers or chills. He has had multiple episodes of emesis this morning, nonbloody. Normal bowel movement yesterday, although the patient states he did have to "strain" somewhat. O therwise no fevers or chills. No coughing or shortness of breath. He denies any abdominal pain. (JOELLEN HINES) - Related Data Allergies/Adverse Reactions: No Known Allergies Allergy (Verified 08/12/19 14:19) Past Medical History - General Information source: Patient - Social History Smoking Status: Never Smoker Family History: Reviewed & Not Pertinent Patient has suicidal ideation: No Patient has homicidal ideation: No - Past Medical History Cardiac Medical History: Reports: Hx Hypercholesterolemia, Hx Hypertension Renal/ Medical History: Denies: Hx Peritoneal Dialysis Musculoskeletal Medical History: Reports Hx Musculoskeletal Deformity, Reports Hx Musculoskeletal Trauma Past Surgical History: Reports: Hx Orthopedic Surgery - left tkr - Immunizations Immunizations up to date: Yes <JOELLEN HINES - Last Filed: 08/13/19 15:15> Review of Systems - Review of Systems Constitutional: No symptoms reported EENT: No symptoms reported Cardiovascular: No symptoms reported Respiratory: No symptoms reported Gastrointestinal: See HPI Genitourinary: No symptoms reported Musculoskeletal: See HPI Skin: No symptoms reported Neurological/Psychological: No symptoms reported <JOELLEN HINES - Last Filed: 08/13/19 15:15> Physical Exam <JOELLEN HINES - Last Filed: 08/13/19 15:15> - Vital signs Vitals: Temp Pulse Resp BP Pulse Ox 98.2 F 90 19 140/73 H 100 08/12/19 14:07 08/12/19 14:07 08/12/19 14:07 08/12/19 14:07 08/12/19 14:07 - Notes Notes: Vital signs reviewed, please refer to chart. Head is normocephalic, atraumatic. Pupils equal round, reactive to light. Pterygium noted to right eye. Neck is supple without meningismus. Heart is regular rate and rhythm. Lungs are clear to auscultation bilaterally. Abdomen is soft, nontender, normoactive bowel sounds throughout. Extremities without cyanosis, clubbing. Posterior calves are nontender. Peripheral pulses are equal. Skin is warm and dry. Patient is drowsy, but arouses to verbal stimuli, neurological exam is nonfocal. Patient has a compression stocking in place in the left lower extremity. Left knee reveals well approximated surgical scar from recent TKA. Mild calor associated, no erythema. (JOELLEN HINES) Course - Laboratory Result Diagrams: 08/12/19 15:13 08/12/19 15:13 <RAUL MARIN - Last Filed: 08/13/19 02:35> - Laboratory Result Diagrams: 08/12/19 15:13 08/12/19 15:13 <JOELLEN HINES - Last Filed: 08/13/19 15:15> - Re-evaluation Re-evalutation: 08/12/2019 2205 Assumed care of patient, pending CT abdomen pelvis and reevaluation for altered mental status. 08/13/19 00:10 Patient is a 64-year-old male who comes in with nausea vomiting, altered mental status, somnolence, decreased p.o. intake. Tachycardia is resolving. CT abdomen pelvis with no acute findings. CTA chest with no acute findings. CT head with no acute findings. Urine clear. Patient with normal CBC: no leukocytosis but does have a left shift. Lactic elevated at 2.9, after 2 L of fluids. ESR is elevated but CRP within normal limits. No headache. No neck pain or meningismus. No rash. Patient came in with nausea and vomiting, no further vomiting at this time. Belly is benign. Per family, patient has not felt like eating, has been drowsy. Patient answers questions and has no focal neurologic deficits, but he falls asleep when I am talking to him. Concerned due to recent surgery that patient may have an occult joint infection. Patient is able to bend his left knee. No erythema. No purulent discharge from the incision. It is clean dry and intact. The left knee, however, is much warmer than the right knee. Patient states that he is not having pain in that knee although again he falls asleep when he is answering me. Blood and urine cultures have been sent. Cefepime and vancomycin 20 mg/kg in itiated in the emergency department. Call placed to the [facility] as patient recently had surgery with Dr. Gunter. 08/13/19 00:[address] Durán. Expressed my concerns. Offered to admit patient here, but I am concerned that the potential source is the left knee. Asked that I obtain a venous Doppler of the leg. Unfortunately, I am unable to do that at this time is that study is not available until the morning. Recommends that patient be transferred to the [facility] ER so that Dr. Gunter can evaluate in the morning. Discussed with Dr. Cabral in the [facility] ER, will accept the patient in transfer. Discussed with patient who is agreeable to this plan. No pain or nausea at this time. 08/13/19 02:48 Patient is medically stable at this time for transfer. Heart rate 92. Oxygen saturation 99% on room air, pulse 91, respiratory rate 24. Most recent temperature 99. Repeat lactic from 00:56 is 1. (RAUL MARIN) 08/12/19 22:03 Patient presents emergency department for evaluation of nausea and vomiting. On arrival he is tachycardic. He is mildly drowsy. Treated the patient with IV fluids, antiemetics. He required multiple doses of multiple medications to feel improved. I finally did get him to slow down on his emesis. Unfortunately, despite significant fluid resuscitation, the patient remains tachycardic with a heart rate between [address] angiogram of the chest was ordered and found to be unremarkable for any signs of pulmonary embolus. His laboratory investigation showed an anemia. Given his elevated pulse, elevated respiratory rate, while the altered mental status, I am concerned about the possibility of sepsis in this patient. He did have an elevated lactate. He was administered IV cefepime. I spoke with Dr. Kay in regards to this patient. He was concerned that withdrawal was an issue. I went back and assessed the patient, he has absolutely no pain at this time. He did agree to a small amount of morphine to see if this affected his heart rate. We will also order a CT scan of the abdomen and pelvis to further investigate the abdomen. At this point I still believe that this patient does require admission. He meets sepsis criteria. He is given IV fluids and IV antibiotics. Ultimate disposition pending at this time. (JOELLEN HINES) - Vital Signs Vital signs: Temp Pulse Resp BP Pulse Ox 99.3 F 97 16 164/80 H 100 08/13/19 02:44 08/13/19 02:44 08/13/19 02:44 08/13/19 02:44 08/13/19 00:12 - Laboratory Laboratory results interpreted by me: 08/12/19 08/12/19 08/12/19 15:13 15:13 20:57 RBC 3.95 L Hgb 10.7 L Hct 32.0 L RDW 15.0 H Plt Count 506 H Lymph % (Auto) 10.4 L Meagher % (Auto) 2.6 L Absolute Neuts (auto) 8.6 H Seg Neutrophils % 85.7 H ESR Carbon Dioxide 21 L Est GFR (MDRD) Non-Af 58 L Glucose 136 H Lactic Acid 2.9 H 08/12/19 22:52 RBC Hgb Hct RDW Plt Count Lymph % (Auto) Meagher % (Auto) Absolute Neuts (auto) Seg Neutrophils % ESR 45 H Carbon Dioxide Est GFR (MDRD) Non-Af Glucose Lactic Acid Critical Care Note - Critical Care Note Total time excluding time spent on procedures (mins): 45 - Evaluation and management of potential sepsis, multiple re-evaluations, coordination of transfer, consultation with specialist, counseling of patient and family <RAUL MARIN - Last Filed: 08/13/19 02:35> Discharge <RAUL MARIN - Last Filed: 08/13/19 02:35> <JOELLEN HINES - Last Filed: 08/13/19 15:15> - Discharge Clinical Impression: Tachycardia, Acute encephalopathy Sepsis Qualifiers: Sepsis type: sepsis due to unspecified organism Sepsis acute organ dysfunction status: unspecified Qualified Code(s): A41.9 - Sepsis, unspecified organism Nausea & vomiting Qualifiers: Vomiting type: unspecified Vomiting Intractability: non-intractable Qualified Code(s): R11.2 - Nausea with vomiting, unspecified Condition: Stable Disposition: [facility] Referrals: LELE PADILLA MD [Primary Care Provider] - Follow up as needed
[2019-08-12 16:38] LABS: CREATINE KINASE MB 0.38 ng/mL (<4.55)
[2019-08-12 16:39] LABS: TROPONIN I < 0.012 ng/mL
[2019-08-12 18:48] LABS: APPEARANCE,URINE CLEAR; BILIRUBIN,URINE NEGATIVE (NEGATIVE); COLOR,URINE YELLOW; GLUCOSE, URINE NEGATIVE (NEGATIVE); KETONES,URINE NEGATIVE (NEGATIVE); LEUKOCYTE ESTERASE,URINE NEGATIVE (NEGATIVE); NITRITE,URINE NEGATIVE (NEGATIVE); PROTEIN,URINE NEGATIVE (NEGATIVE); URINE SPECIFIC GRAVITY 1.013; UROBILINOGEN,URINE NEGATIVE mg/dL (<2.0)
[2019-08-12] MEDS ORDERED: METOCLOPRAMIDE HCL INJ/PF 10 MG/2 ML SDV IV ONE (19:51)
[2019-08-12] MEDS ORDERED: PROMETHAZINE HCL INJ 25 MG/1 ML VIAL ONE (20:05)
[2019-08-12] MEDS ORDERED: CEFEPIME 2 GM/D5W RTU 2 GM/50 ML RTUPB IV ONE (20:49)
--- NOTE | 2019-08-12 21:11 | RADIOLOGY REPORT (SQ) ---
EXAM DESCRIPTION: RadLex: CT CHEST ANGIOGRAPHY WITHOUT THEN WITH IV CONTRAST CLINICAL HISTORY: 64 years Male; dyspnea on exertion, tachycardia; TECHNIQUE: CT angiogram of the chest using intravenous contrast.. MIP reconstructions were performed. All CT scans at this facility use dose modulation, iterative reconstruction, and/or weight based dosing when appropriate to reduce radiation dose to as low as reasonably achievable. COMPARISON: None. FINDINGS: Chest: No central pulmonary artery filling defects. Distal branches are difficult to evaluate due to contrast density and artifact. Aorta: No aneurysm or dissection. There are mildly increased interstitial markings in both lower lobes, but no focal consolidation. No pneumothorax or pleural effusion. Mediastinum is normal, with no adenopathy or mass. IMPRESSION: 1. Low probability for pulmonary embolism. 2. Mild pulmonary vascular congestion. 3. No focal acute infiltrates.
[2019-08-12] MEDS ORDERED: MORPHINE SULFATE 10 MG/ML INJ IV ONE (22:06)
[2019-08-12] MEDS ORDERED: VANCOMYCIN HCL INJ 1000 MG VIAL IV ONE (22:14)
--- NOTE | 2019-08-12 22:46 | RADIOLOGY REPORT (SQ) ---
EXAM DESCRIPTION: CT ABDOMEN PELVIS WITHOUT IV CONTRAST COMPLETED DATE/TME: 08/12/2019 22:07 CLINICAL HISTORY: 64 years, Male, vomiting This exam was performed according to our departmental dose-optimization program which includes automated exposure control, adjustment of the mA and/or kVp according to patient size and/or use of iterative reconstruction technique where applicable. Compared to CT abdomen pelvis dated 12/07/2018. This exam was performed according to our departmental dose-optimization program which includes automated exposure control, adjustment of the mA and/or kVp according to patient size and/or use of iterative reconstruction technique where applicable. FINDINGS: Visualized lung bases are within normal limits. Liver, spleen, pancreas, gallbladder and adrenal glands are within normal limits. No biliary dilatation. Left renal cyst measures 3.15 cm. No hydronephrosis. Small right renal cyst measures 1.4 cm. No dilated loops of bowel to suggest obstruction. Mild amount of stool in the colon. The bladder is moderately distended and appears unremarkable. No abdominal or pelvic lymphadenopathy. Abdominal aorta is within normal limits. Appendix is normal. Prostate is moderately enlarged to 5.4 x 4.8 cm. IMPRESSION: No acute disease. No evidence for bowel obstruction or appendicitis.
--- NOTE | 2019-08-12 23:49 | EKG REPORT ---
SEVERITY:- ABNORMAL ECG - SINUS RHYTHM RIGHT BUNDLE BRANCH BLOCK : Confirmed by: Dianne Jade MD 12-Aug-2019 23:48:43
[2019-08-13] MEDS ORDERED: VANCOMYCIN HCL INJ 1000 MG VIAL IV ONE (00:06)
--- NOTE | 2019-08-13 02:26 | RADIOLOGY REPORT (SQ) ---
CLINICAL HISTORY: AMS COMPARISON: None. TECHNIQUE: CT HEAD WITHOUT IV CONTRAST on 08/13/2019 12:42 AM CDT This exam was performed according to our departmental dose-optimization program, which includes automated exposure control, adjustment of the mA and/or kV according to patient size and/or use of iterative reconstruction technique. FINDINGS: There is no acute hemorrhage, mass effect or midline shift. Stout-white differentiation is preserved. There is no hydrocephalus. There is no significant volume loss for age. There are mild patchy hypodensities within the periventricular and subcortical white matter, consistent with microangiopathic ischemic changes. The calvarium is intact. Orbits and globes are unremarkable. The paranasal sinuses are clear. Mastoid air cells are clear. IMPRESSION: No acute intracranial findings.
[2019-08-13 02:46] VITALS: BP 164/80
== END 2019-08-13 03:32 | disposition short-term general hospital (02) ==
LOC: ER 14:03
DX: A41.9 Sepsis, unspecified organism (principal); R00.0 Tachycardia, unspecified; R11.2 Nausea with vomiting, unspecified; R40.0 Somnolence; Z79.899 Other long term (current) drug therapy; I10 Essential (primary) hypertension
CPT/HCPCS: 93005; 36415; 87040; 82553; 82550; 83690; 85025; 85652; 86140; 80053; 81001; 84484; 83605; 71275; 74176; 93010; J2765; J2270; J2550; J2405; J7030; J3370; J0692; 70450; 87086

== ENCOUNTER 2019-11-12 12:43 | Day surgery (SDC) | payer MEDICARE ==
[~2019-11-12 12:43] MED LIST: BALANCED SALT IRRIG SOLN COMB2 15 ML BOTTLE ONE; CYCLOPENTOLATE 0.2%/PHENYLEPHRINE 1% OPH SOLN 2 ML OD PRN; FENTANYL CITRATE INJ/PF 100 MCG/2 ML AMPUL ONE; KETOROLAC TROMETHAMINE 0.45% 4 DROP/0.4 ML DROPERETTE OD PRN; LIDOCAINE 1%/EPINEPHRINE INJ 20 ML VIAL ONE; MIDAZOLAM 2 MG/2 ML INJ ONE; MITOMYCIN OPH SOLN 0.02% 2 ML OD PRN; ONDANSETRON HCL INJ/PF 4 MG/2 ML SDV ONE; TOBRAMYCIN SULFATE/DEXAMETH OPH OINTMENT 3.5 GM ONE; TROPICAMIDE 1% OPH SOLN 15 ML OD PRN
[2019-11-12] MEDS ORDERED: KETOROLAC TROMETHAMINE 0.45% 4 DROP/0.4 ML DROPERETTE OD PRN (13:00)
[2019-11-12] MEDS: BESIFLOXACIN HCL 0.6% OPH SUSP 5 ML BOTTLE OD PRN ×2 (13:06→13:20)
[2019-11-12] MEDS: TETRACAINE HCL 0.5% OPH SOLN 4 ML OD PRN ×3 (13:06→13:44)
[2019-11-12] MEDS ORDERED: POVIDONE-IODINE 5% OPH PREP SOLN 30 ML ONE (13:40)
--- NOTE | 2019-11-19 14:46 | Operative Report ---
Operative Report-[facility] Operative Report: See scanned report
== END 2019-11-12 15:17 | disposition home or self-care (01) ==
LOC: SC 12:43
PROVIDERS: ATTEND Ophthalmology
DX: H11.051 Peripheral pterygium, progressive, right eye (principal); Z79.899 Other long term (current) drug therapy; I10 Essential (primary) hypertension; E78.00 Pure hypercholesterolemia, unspecified; Z88.6 Allergy status to analgesic agent
CPT/HCPCS: 88305 ×2; 00140; 65426; J2250; J3490 ×4; A9270 ×2; J3010; J2405; J9280; 140

== ENCOUNTER 2020-11-14 13:53 | Inpatient (IN) | payer MEDICARE ==
[2020-11-14] MEDS ORDERED: ONDANSETRON HCL INJ/PF 4 MG/2 ML SDV IV ONE (14:29)
[2020-11-14] MEDS ORDERED: NORMAL SALINE 1000 ML 1,000 ML IV ONE (14:29)
--- NOTE | 2020-11-14 14:29 | ER Document Report ---
ED Medical Screen (RME) - General Chief Complaint: Vomiting Stated Complaint: VOMITING,COUGH Time Seen by Provider: 11/14/20 14:20 Primary Care Provider: LELE PADILLA MD [Primary Care Provider] - Follow up as needed Notes: 65-year-old male presents to the emergency department with nausea, vomiting, and a cough. He tested positive for COVID-19. Exam: Alert and oriented. I have greeted and performed a rapid initial assessment of this patient. A comprehensive ED assessment and evaluation of the patient, analysis of test results and completion of medical decision making process will be conducted by an additional ED providers. TRAVEL OUTSIDE OF THE [place] IN LAST 30 DAYS: No - Related Data Allergies/Adverse Reactions: aspirin Adverse Reaction (Verified 11/12/19 13:18) Nausea Past Medical History - Past Medical History Cardiac Medical History: Reports: Hx Hypercholesterolemia, Hx Hypertension Denies: Hx Heart Attack Pulmonary Medical History: Denies: Hx Asthma Neurological Medical History: Denies: Hx Cerebrovascular Accident, Hx Seizures Renal/ Medical History: Denies: Hx Peritoneal Dialysis GI Medical History: Denies: Hx Hepatitis, Hx Hiatal Hernia, Hx Ulcer Musculoskeltal Medical History: Reports Hx Musculoskeletal Deformity, Reports Hx Musculoskeletal Trauma Infectious Medical History: Denies: Hx Hepatitis Past Surgical History: Reports: Hx Orthopedic Surgery - left tkr. Denies: Hx Open Heart Surgery, Hx Pacemaker - Immunizations Immunizations up to date: Yes Physical Exam - Vital signs Vitals: Temp Pulse Resp BP Pulse Ox 98.2 F 77 16 150/72 H 96 11/14/20 14:07 11/14/20 14:07 11/14/20 14:07 11/14/20 14:07 11/14/20 14:07 Course - Vital Signs Vital signs: Temp Pulse Resp BP Pulse Ox 98.2 F 77 16 150/72 H 96 11/14/20 14:07 11/14/20 14:07 11/14/20 14:07 11/14/20 14:07 11/14/20 14:07 Doctor's Discharge - Discharge Referrals: LELE PADILLA MD [Primary Care Provider] - Follow up as needed
--- NOTE | 2020-11-14 15:00 | RADIOLOGY REPORT (SQ) ---
EXAM DESCRIPTION: CHEST SINGLE VIEW<Procedure Description>CHEST SINGLE VIEW IMAGES COMPLETED DATE/TIME: 11/14/2020 2:51 pm<Completed Time>11/14/2020 2:51 pm REASON FOR STUDY: cough<Reason For Exam>cough <ADM DX> COMPARISON: 07/26/2010 NUMBER OF VIEWS: One. TECHNIQUE: Single frontal radiographic view of the chest acquired. RADIATION DOSE: <RADIATION DOSE> LIMITATIONS: None. FINDINGS: LUNGS AND PLEURA: No pneumothorax. No consolidation or pleural effusion. MEDIASTINUM AND HILAR STRUCTURES: Stable. HEART AND VASCULAR STRUCTURES: Stable. BONES: No acute findings. HARDWARE: None in the chest. OTHER: No other significant findings. IMPRESSION: NO ACUTE FINDINGS. TECHNICAL DOCUMENTATION: JOB ID: [id number]<Job ID>[id number] 2010 [employer]- All Rights Reserved Reading location - IP/workstation name: [email or web address]
--- NOTE | 2020-11-14 15:29 | ER Document Report ---
ED General - General Chief Complaint: Vomiting Stated Complaint: VOMITING,COUGH Time Seen by Provider: 11/14/20 14:20 TRAVEL OUTSIDE OF THE [place] IN LAST 30 DAYS: No - HPI Notes: Patient is a 65-year-old male with a past medical history of hypertension who presents with 1 week of nausea and vomiting. He states he has been unable to keep food down. Patient tried to drink Ensure but was unable to keep it down today. He denies any chest pain. No shortness of breath or cough symptoms no fevers or chills. No abdominal pain. No urinary symptoms. No diarrhea or constipation. He states he was tested for Covid but it was negative. He denies any sick contacts. He has never had any abdominal surgeries. Patient states this happened to him last year and he had pneumonia at that time. - Related Data Allergies/Adverse Reactions: aspirin Adverse Reaction (Verified 11/12/19 13:18) Nausea Past Medical History - General Information source: Patient - Social History Smoking Status: Never Smoker Frequency of alcohol use: None Family History: Reviewed & Not Pertinent - Past Medical History Cardiac Medical History: Reports: Hx Hypercholesterolemia, Hx Hypertension Denies: Hx Heart Attack Pulmonary Medical History: Denies: Hx Asthma Neurological Medical History: Denies: Hx Cerebrovascular Accident, Hx Seizures Renal/ Medical History: Denies: Hx Peritoneal Dialysis GI Medical History: Denies: Hx Hepatitis, Hx Hiatal Hernia, Hx Ulcer Musculoskeletal Medical History: Reports Hx Musculoskeletal Deformity, Reports Hx Musculoskeletal Trauma Infectious Medical History: Denies: Hx Hepatitis Past Surgical History: Reports: Hx Orthopedic Surgery - left tkr. Denies: Hx Open Heart Surgery, Hx Pacemaker - Immunizations Immunizations up to date: Yes Review of Systems - Review of Systems Notes: VITAL SIGNS: Occasionally tachypneic. GENERAL: No acute distress, non-toxic appearance. HEAD: Normal with no signs of head trauma. EYES: Conjunctiva normal, no discharge. EARS: Hearing grossly intact. NECK: Normal range of motion, supple. CHEST: Clear breath sounds bilaterally. No wheezes, rales, or rhonchi. CARDIAC: Regular rate and rhythm. VASCULAR: No Edema. ABDOMEN: Normal and soft with no tenderness, no masses or pulsatile masses. GASTROINTESTINAL: Bowel sounds normal GENITOURINARY: Normal, No tenderness MUSCULOSKELETAL: Good range of motion of all major joints. Extremities without clubbing, cyanosis or edema. NEUROLOGICAL: Alert and oriented x 3. No focal sensory or strength deficits. Speech normal. Follows commands appropriately. PSYCHIATRIC: Normal Affect, judgement and mood. SKIN: Normal appearance with no rashes or lesions. Physical Exam - Vital signs Vitals: Temp Pulse Resp BP Pulse Ox 98.2 F 77 16 150/72 H 96 11/14/20 14:07 11/14/20 14:07 11/14/20 14:07 11/14/20 14:07 11/14/20 14:07 - General General appearance: Appears well In distress: None Course - Re-evaluation Re-evalutation: 11/14/20 18:26 Patient appears dehydrated. He is tachypneic. His lab work shows acute kidney injury likely from nausea, vomiting, dehydration. I have given him a liter of fluids and Zofran. On reassessment, patient states he is still unable to take p.o. He states he would like to stay in the hospital as he is afraid to go home. I believe this is reasonable as he still appears uncomfortable and dehydrated. I discussed with the hospitalist for admission. His Covid test is pending. Abdomen is soft and nontender and he has no pains I do not believe he warrants a CT scan or any other imaging. Possibly, this could be viral. - Vital Signs Vital signs: Temp Pulse Resp BP Pulse Ox 98.9 F 92 20 152/77 H 97 11/15/20 00:36 11/15/20 00:36 11/15/20 00:36 11/15/20 00:36 11/15/20 00:36 - Laboratory Results Result Diagrams: 11/14/20 16:08 11/14/20 16:08 Laboratory Results Interpreted: 11/14/20 11/14/20 11/14/20 16:08 16:08 16:08 WBC 12.8 H Hgb 12.5 L MCV 79 L MCH 25.7 L RDW 15.5 H Seg Neuts % (Manual) 93 H Band Neutrophils % 1 L Lymphocytes % (Manual) 3 L Abs Neuts (Manual) 12.0 H Abs Lymphs (Manual) 0.4 L Sodium 148.0 H Chloride 113 H Carbon Dioxide 18 L BUN 80 H Creatinine 2.48 H Est GFR ( Amer) 32 L Est GFR (MDRD) Non-Af 26 L Glucose 165 H Calcium 10.4 H AST 70 H ALT 53 H Total Protein 8.7 H Urine Protein 30 H Urine Blood SMALL H Critical Laboratory Results Reviewed: No Critical Results - Radiology Results Critical Radiology Results Reviewed: No Critical Results Discharge - Discharge Clinical Impression: Acute kidney injury, COVID-19 Nausea and vomiting Qualifiers: Vomiting type: unspecified Vomiting Intractability: non-intractable Qualified Code(s): R11.2 - Nausea with vomiting, unspecified Condition: Stable Disposition: ADMITTED INPATIENT Admitting Provider: Kade (Hospitalist) Unit Admitted: Medical Floor
[2020-11-14 16:24] LABS: HEMATOCRIT 38.2 % (37.9-51.0); HEMOGLOBIN 12.5 g/dL (13.5-17.0); MEAN CORPUSCULAR HEMOGLOBIN 25.7 pg (27.0-33.4); MEAN CORPUSCULAR HGB CONC 32.7 g/dL (32.0-36.0); MEAN CORPUSCULAR VOLUME 79 fl (80-97); PLATELET COUNT 314 10^3/uL (150-450); RED BLOOD COUNT 4.86 10^6/uL (4.35-5.55); RED CELL DISTRIBUTION WIDTH 15.5 % (11.5-14.0); WHITE BLOOD COUNT 12.8 10^3/uL (4.0-10.5)
[2020-11-14 16:29] LABS: APPEARANCE,URINE CLEAR; BILIRUBIN,URINE NEGATIVE (NEGATIVE); COLOR,URINE YELLOW; GLUCOSE, URINE NEGATIVE (NEGATIVE); KETONES,URINE NEGATIVE (NEGATIVE); LEUKOCYTE ESTERASE,URINE NEGATIVE (NEGATIVE); NITRITE,URINE NEGATIVE (NEGATIVE); PROTEIN,URINE 30 mg/dL (NEGATIVE); URINE SPECIFIC GRAVITY 1.014; UROBILINOGEN,URINE NEGATIVE mg/dL (<2.0)
[2020-11-14 16:44] LABS: ALBUMIN 4.6 g/dL (3.5-5.0); ALKALINE PHOSPHATASE 67 U/L (38-126); ANION GAP 17 (5-19); ASPARTATE AMINO TRANSFERASE 70 U/L (17-59); BILIRUBIN,DIRECT 0.4 mg/dL (0.0-0.4); BILIRUBIN,TOTAL 0.5 mg/dL (0.2-1.3); BLOOD UREA NITROGEN 80 mg/dL (7-20); CALCIUM 10.4 mg/dL (8.4-10.2); CARBON DIOXIDE 18 mmol/L (22-30); CHLORIDE 113 mmol/L (98-107); GLUCOSE 165 mg/dL (75-110); POTASSIUM 4.9 mmol/L (3.6-5.0); TOTAL PROTEIN 8.7 g/dL (6.3-8.2)
[2020-11-14 16:46] LABS: ABSOLUTE LYMPHOCYTES# (MANUAL) 0.4 10^3/uL (0.5-4.7); ABSOLUTE MONOCYTES # (MANUAL) 0.4 10^3/uL (0.1-1.4); BAND NEUTROPHILS % (MANUAL) 1 % (3-5); BASOPHILS % (MANUAL) 0 % (0-2); EOSINOPHILS % (MANUAL) 0 % (0-6); LYMPHOCYTES % (MANUAL) 3 % (13-45); MONOCYTES % (MANUAL) 3 % (3-13); SEGMENTED NEUTROPHILS % (MAN) 93 % (42-78); TOTAL CELLS COUNTED 100
[2020-11-14 16:47] LABS: HYPOCHROMASIA SLIGHT
[2020-11-14 16:48] LABS: ANISOCYTOSIS SLIGHT; PLATELET COMMENT ADEQUATE
[2020-11-14] MEDS ORDERED: RINGERS SOLUTION,LACTATED 1,000 ML IV ONE (17:46)
[2020-11-14] MEDS ORDERED: ACETAMINOPHEN 325 MG TABLET PO PRN (18:24)
[2020-11-14] MEDS ORDERED: PROMETHAZINE HCL INJ 25 MG/1 ML VIAL IV PRN (18:24)
[2020-11-14] MEDS ORDERED: IPRATROPIUM/ALBUTEROL 0.5-2.5 MG/3 ML AMPUL NEB PRN (18:24)
--- NOTE | 2020-11-14 19:11 | PDOC H&P ---
History of Present Illness Admission Date/PCP: 11/14/20 18:34 LELE PADILLA Patient complains of: Nausea, vomiting, diarrhea History of Present Illness: LELE WALSH JR is a 65 year old male, PMH of HTN, who came in the ED today due to nausea, vomiting and weakness. Symptoms started 1 week prior to admission when he developed Nausea/vomiting and diarrhea about 3-4 episodes per day of both vomiting and diarrhea. He denied eating any unusual food and no one else in the family is having similar symptoms. No recent abx use, no recent travel. He denied any abdominal pain, fever. Vomitus is non bloody. He took paracetamol and anti diarrheal meds to no avail. He got progressively weaker hence he came to the ED. In the ED, VS 150/72, HR 77, RR 34, T 98.2, O2sat 98%. CBC 12.8, hgb 12.5. CMP showed hypernatremia 148, crea 2.48, Ca 10.4. Patient was given a bolus of LR and NS and Hospitalist service was called for further evla and management. Past Medical History Cardiac Medical History: Reports: Hyperlipidema, Hypertension Denies: Myocardial Infarction Pulmonary Medical History: Denies: Asthma Neurological Medical History: Denies: Seizures GI Medical History: Denies: Hepatitis, Hiatal Hernia Hematology: Denies: Anemia, Sickle Cell Disease Past Surgical History Past Surgical History: Reports: Orthopedic Surgery - left tkr Denies: Pacemaker Social History Information Source: Patient Lives with: Family Smoking Status: Never Smoker Electronic Cigarette use?: No Frequency of Alcohol Use: None - Advance Directive Resuscitation Status: Full Code Surrogate healthcare decision maker:: Patient affirms FULL CODE status and appoints his as his HCPOA Family History Family History: Reviewed & Not Pertinent Parental Family History Reviewed: Yes Children Family History Reviewed: Yes Sibling(s) Family History Reviewed.: Yes Medication/Allergy Home Medications: Amlodipine Besylate [Norvasc 10 mg Tablet] 10 mg PO DAILY #30 tablet 07/27/17 Tamsulosin HCl [Flomax 0.4 mg Cap.sr] 0.4 mg PO DAILY 11/10/19 Allergies/Adverse Reactions: aspirin Adverse Reaction (Verified 11/12/19 13:18) Nausea Review of Systems Constitutional: PRESENT: fatigue, weakness Eyes: ABSENT: visual disturbances Ears: ABSENT: hearing changes Nose, Mouth, and Throat: ABSENT: mouth pain, sore throat Breasts: ABSENT: other Cardiovascular: ABSENT: chest pain, dyspnea on exertion, edema, orthropnea, palpitations Respiratory: ABSENT: cough, dyspnea Gastrointestinal: PRESENT: diarrhea, nausea, vomiting Genitourinary: ABSENT: difficulty urinating, dysuria, hematuria Neurological: ABSENT: focal weakness Psychiatric: ABSENT: suicidal ideation Physical Exam Vital Signs: Temp Pulse Resp BP Pulse Ox 98.2 F 77 32 H 149/77 H 97 11/14/20 14:07 11/14/20 14:07 11/14/20 16:00 11/14/20 15:21 11/14/20 16:00 Intake & Output 11/13/20 11/14/20 11/15/20 06:59 06:59 06:59 Weight 87.8 kg General appearance: PRESENT: cooperative, mild distress Head exam: PRESENT: atraumatic, normocephalic Eye exam: PRESENT: EOMI, PERRLA Mouth exam: PRESENT: moist Neck exam: PRESENT: full ROM Respiratory exam: PRESENT: clear to auscultation ellen, symmetrical, unlabored Cardiovascular exam: PRESENT: RRR, +S1, +S2 GI/Abdominal exam: PRESENT: hyperactive bowel sounds, soft. ABSENT: rebound, tenderness Extremities exam: PRESENT: full ROM Musculoskeletal exam: PRESENT: full ROM Neurological exam: PRESENT: alert, awake, oriented to person, oriented to place, oriented to time, oriented to situation Psychiatric exam: PRESENT: normal mood Skin exam: PRESENT: normal color Results Laboratory Results: 11/14/20 16:08 11/14/20 16:08 11/14/20 11/14/20 11/14/20 16:08 16:08 16:08 WBC 12.8 H RBC 4.86 Hgb 12.5 L Hct 38.2 MCV 79 L MCH 25.7 L MCHC 32.7 RDW 15.5 H Plt Count 314 Seg Neutrophils % Not Reportable Sodium 148.0 H Potassium 4.9 Chloride 113 H Carbon Dioxide 18 L Anion Gap 17 BUN 80 H Creatinine 2.48 H Est GFR ( Amer) 32 L Glucose 165 H Calcium 10.4 H Total Bilirubin 0.5 AST 70 H Alkaline Phosphatase 67 Total Protein 8.7 H Albumin 4.6 Urine Color YELLOW Urine Appearance CLEAR Urine pH 5.0 Ur Specific [place] 1.014 Urine Protein 30 H Urine Glucose (UA) NEGATIVE Urine Ketones NEGATIVE Urine Blood SMALL H Urine Nitrite NEGATIVE Ur Leukocyte Esterase NEGATIVE Urine WBC (Auto) 1 Urine RBC (Auto) 1 11/14/20 16:08 Troponin I < 0.012 Impressions: Chest X-Ray 11/14/20 14:27 IMPRESSION: NO ACUTE FINDINGS. Assessment and Plan - Diagnosis (1) Acute kidney injury Is this a current diagnosis for this admission?: Yes Plan: - Crea 2.48 non oliguric baseline 1.2 - likely pre renal from dehydration - continue IV fluids NS - strict IO (2) Dehydration Is this a current diagnosis for this admission?: Yes Plan: - from diarrhea, N/V - sent for stool culture, c.diff - supportive management with IV fluids, zofran, phenergan (3) Diarrhea Qualifiers: Diarrhea type: unspecified type Qualified Code(s): R19.7 - Diarrhea, unspecified Is this a current diagnosis for this admission?: Yes Plan: - 1 week hx of diarrhea with N&V, no fever, no abdominal pain - no recent travel, no hx of unusual food intake - C.diff, stool culture, stool WBC pending - continue supportive management (4) Nausea and vomiting Qualifiers: Vomiting type: unspecified Vomiting Intractability: non-intractable Qualified Code(s): R11.2 - Nausea with vomiting, unspecified Is this a current diagnosis for this admission?: Yes Plan: - continue phenergan and zofran - continue IV fluids (5) Leukocytosis Qualifiers: Leukocytosis type: unspecified Qualified Code(s): D72.829 - Elevated white blood cell count, unspecified Is this a current diagnosis for this admission?: Yes Plan: - WBC 12.8 likely reactive from vomiting - no fever - no indication for abx for now - continue support - monitor CBC daily (6) Tachypnea Is this a current diagnosis for this admission?: Yes Plan: - RR 34 - CXR unremarkable - likely compensatory from metabolic acidosis from dehydration - checking ABG - continue to monitor (7) HTN (hypertension) Qualifiers: Hypertension type: essential hypertension Qualified Code(s): I10 - Essential (primary) hypertension Is this a current diagnosis for this admission?: Yes Plan: - on Lisinopril - will hold for now due to NIKOLE - Time Time Spent with patient: 35 or more minutes Medications reviewed and adjusted accordingly: Yes Anticipated Discharge Disposition: Home, Self Care Anticipated Discharge Timeframe: within 48 hours
[2020-11-14] MEDS: NORMAL SALINE 1000 ML 1,000 ML IV PRN (20:28)
[2020-11-14 20:39] LABS: ARTERIAL BLOOD BASE EXCESS -5.2 mmol/L; ARTERIAL BLOOD H2CO3 0.83 mmol/L (1.05-1.35); ARTERIAL BLOOD HCO3 17.9 mmol/L (20-24); ARTERIAL BLOOD O2 SATURATION 96.2 % (94-98); ARTERIAL BLOOD PCO2 27.6 mmHg (35-45); ARTERIAL BLOOD PH 7.43 (7.35-7.45); ARTERIAL BLOOD TOTAL CO2 18.8 mmol/L (23-27)
[2020-11-14 20:40] LABS: ARTERIAL BLOOD FIO2 ROOM AIR
--- NOTE | 2020-11-14 21:18 | EKG REPORT ---
SEVERITY:- ABNORMAL ECG - SINUS RHYTHM RIGHT BUNDLE BRANCH BLOCK NONSPECIFIC ST-T CHANGES- INFERIOR LEADS : Confirmed by: Evan Virgen MD 14-Nov-2020 21:17:15
[2020-11-15] MEDS: NORMAL SALINE 1000 ML 1,000 ML IV PRN (06:06)
[2020-11-15 06:47] LABS: ABSOLUTE LYMPHOCYTES (AUTO) 0.6 10^3/uL (0.5-4.7); ABSOLUTE MONOCYTES (AUTO) 1.2 10^3/uL (0.1-1.4); ABSOLUTE NEUT (AUTO) 8.9 10^3/uL (1.7-8.2); BASOPHILS % (AUTO) 0.1 % (0-2); HEMATOCRIT 33.9 % (37.9-51.0); HEMOGLOBIN 11.2 g/dL (13.5-17.0); LYMPHOCYTES % (AUTO) 5.5 % (13-45); MEAN CORPUSCULAR HEMOGLOBIN 26.5 pg (27.0-33.4); MEAN CORPUSCULAR HGB CONC 33.1 g/dL (32.0-36.0); MEAN CORPUSCULAR VOLUME 80 fl (80-97); MONOCYTES % (AUTO) 11.3 % (3-13); PLATELET COUNT 282 10^3/uL (150-450); RED BLOOD COUNT 4.23 10^6/uL (4.35-5.55); RED CELL DISTRIBUTION WIDTH 15.3 % (11.5-14.0); SEGMENTED NEUTROPHILS % (AUTO) 83.1 % (42-78); TOTAL CELLS COUNTED % (AUTO) 100 %; WHITE BLOOD COUNT 10.7 10^3/uL (4.0-10.5)
[2020-11-15 07:08] LABS: ALBUMIN 4.1 g/dL (3.5-5.0); ALKALINE PHOSPHATASE 60 U/L (38-126); ANION GAP 13 (5-19); ASPARTATE AMINO TRANSFERASE 49 U/L (17-59); BILIRUBIN,DIRECT 0.3 mg/dL (0.0-0.4); BILIRUBIN,TOTAL 0.4 mg/dL (0.2-1.3); CALCIUM 9.7 mg/dL (8.4-10.2); CARBON DIOXIDE 20 mmol/L (22-30); CHLORIDE 119 mmol/L (98-107); GLUCOSE 138 mg/dL (75-110); POTASSIUM 4.8 mmol/L (3.6-5.0); TOTAL PROTEIN 7.7 g/dL (6.3-8.2)
[2020-11-15 07:22] LABS: BLOOD UREA NITROGEN 52 mg/dL (7-20)
[2020-11-15] MEDS: 1/2 NORMAL SALINE 1,000 ML IV PRN ×2 (09:48→18:04)
[2020-11-15] MEDS: ENOXAPARIN SODIUM INJ 40 MG/0.4 ML DISP.SYRIN SUBCUT SCH (09:48)
[2020-11-15] MEDS: TAMSULOSIN HCL 0.4 MG CAP.SR.24H PO SCH (09:48)
[2020-11-15] MEDS: AMLODIPINE BESYLATE 10 MG TABLET PO SCH (09:48)
--- NOTE | 2020-11-15 15:02 | PDOC PROGRESS REPORT ---
Subjective Date:: 11/15/20 Subjective:: Patient has no respiratory complaints today. His diarrhea has improved. He is still nauseous but has not had any episode of vomiting today. Reason For Visit: DEHYDRATION, NIKOLE Physical Exam Vital Signs: Temp Pulse Resp BP Pulse Ox 99.1 F 72 16 155/73 H 95 11/15/20 11:17 11/15/20 14:34 11/15/20 14:34 11/15/20 11:17 11/15/20 14:34 Intake & Output 11/14/20 11/15/20 11/16/20 06:59 06:59 06:59 Intake Total 3000 354 Output Total 550 925 Balance 2450 -571 Weight 87.8 kg General appearance: PRESENT: no acute distress, cooperative Neck exam: ABSENT: JVD Respiratory exam: PRESENT: clear to auscultation ellen, symmetrical, unlabored. ABSENT: retraction, tachypnea, wheezes Cardiovascular exam: PRESENT: RRR, +S1, +S2. ABSENT: tachycardia GI/Abdominal exam: PRESENT: soft. ABSENT: rebound, rigid, tenderness Neurological exam: PRESENT: alert, awake, oriented to person, oriented to place, oriented to time, oriented to situation Results Laboratory Results: 11/15/20 06:07 11/15/20 06:07 11/14/20 11/14/20 11/14/20 16:08 16:08 16:08 WBC 12.8 H RBC 4.86 Hgb 12.5 L Hct 38.2 MCV 79 L MCH 25.7 L MCHC 32.7 RDW 15.5 H Plt Count 314 Seg Neutrophils % Not Reportable Carbonic Acid HCO3/H2CO3 Ratio ABG pH ABG pCO2 ABG pO2 ABG HCO3 ABG O2 Saturation ABG Base Excess FiO2 Sodium 148.0 H Potassium 4.9 Chloride 113 H Carbon Dioxide 18 L Anion Gap 17 BUN 80 H Creatinine 2.48 H Est GFR ( Amer) 32 L Glucose 165 H Lactic Acid Calcium 10.4 H Magnesium Total Bilirubin 0.5 AST 70 H Alkaline Phosphatase 67 Total Protein 8.7 H Albumin 4.6 Urine Color YELLOW Urine Appearance CLEAR Urine pH 5.0 Ur Specific [place] 1.014 Urine Protein 30 H Urine Glucose (UA) NEGATIVE Urine Ketones NEGATIVE Urine Blood SMALL H Urine Nitrite NEGATIVE Ur Leukocyte Esterase NEGATIVE Urine WBC (Auto) 1 Urine RBC (Auto) 1 11/14/20 11/14/20 11/15/20 19:35 20:14 06:07 WBC 10.7 H RBC 4.23 L Hgb 11.2 L Hct 33.9 L MCV 80 MCH 26.5 L MCHC 33.1 RDW 15.3 H Plt Count 282 Seg Neutrophils % 83.1 H Carbonic Acid 0.83 L HCO3/H2CO3 Ratio 21:1 ABG pH 7.43 ABG pCO2 27.6 L ABG pO2 79.0 L ABG HCO3 17.9 L ABG O2 Saturation 96.2 ABG Base Excess -5.2 FiO2 ROOM AIR Sodium Potassium Chloride Carbon Dioxide Anion Gap BUN Creatinine Est GFR ( Amer) Glucose Lactic Acid 2.3 H Calcium Magnesium Total Bilirubin AST Alkaline Phosphatase Total Protein Albumin Urine Color Urine Appearance Urine pH Ur Specific [place] Urine Protein Urine Glucose (UA) Urine Ketones Urine Blood Urine Nitrite Ur Leukocyte Esterase Urine WBC (Auto) Urine RBC (Auto) 11/15/20 06:07 WBC RBC Hgb Hct MCV MCH MCHC RDW Plt Count Seg Neutrophils % Carbonic Acid HCO3/H2CO3 Ratio ABG pH ABG pCO2 ABG pO2 ABG HCO3 ABG O2 Saturation ABG Base Excess FiO2 Sodium 152.0 H Potassium 4.8 Chloride 119 H Carbon Dioxide 20 L Anion Gap 13 BUN 52 H D Creatinine 1.77 H Est GFR ( Amer) 47 L Glucose 138 H Lactic Acid Calcium 9.7 Magnesium 3.3 H Total Bilirubin 0.4 AST 49 Alkaline Phosphatase 60 Total Protein 7.7 Albumin 4.1 Urine Color Urine Appearance Urine pH Ur Specific [place] Urine Protein Urine Glucose (UA) Urine Ketones Urine Blood Urine Nitrite Ur Leukocyte Esterase Urine WBC (Auto) Urine RBC (Auto) 11/14/20 11/15/20 16:08 06:07 Creatine Kinase 423 H Troponin I < 0.012 Impressions: Chest X-Ray 11/14/20 14:27 IMPRESSION: NO ACUTE FINDINGS. Assessment and Plan - Diagnosis (1) Acute kidney injury Is this a current diagnosis for this admission?: Yes Plan: Secondary to dehydration. Creatinine kinase is only mildly elevated. Creatinine is improved from 2.4-1.77. Continue IV fluid hydration. Recheck labs in the morning. (2) Hypernatremia Is this a current diagnosis for this admission?: Yes Plan: Secondary to dehydration. Sodium has worsened to 152 today. Discontinued normal saline this morning and initiated patient on half-normal saline. Recheck basic metabolic panel this evening. Goal correction rate of 10 M EQ/24 hours (3) COVID-19 Is this a current diagnosis for this admission?: Yes Plan: Currently not having any pneumonia. I will give 1 dose of ivermectin. Continue vitamin and zinc supplements. (4) Dehydration Is this a current diagnosis for this admission?: Yes (5) Diarrhea Qualifiers: Diarrhea type: infectious Qualified Code(s): A09 - Infectious gastroenteritis and colitis, unspecified Is this a current diagnosis for this admission?: Yes Plan: Likely secondary to Covid. C. difficile still being awaited. However it seems to be subsiding now. (6) HTN (hypertension) Qualifiers: Hypertension type: essential hypertension Qualified Code(s): I10 - Essential (primary) hypertension Is this a current diagnosis for this admission?: Yes Plan: Resume amlodipine. Keep lisinopril and diuretic on hold given NIKOLE. (7) Leukocytosis Qualifiers: Leukocytosis type: unspecified Qualified Code(s): D72.829 - Elevated white blood cell count, unspecified Is this a current diagnosis for this admission?: Yes (8) Nausea and vomiting Qualifiers: Vomiting type: unspecified Vomiting Intractability: non-intractable Qualified Code(s): R11.2 - Nausea with vomiting, unspecified Is this a current diagnosis for this admission?: Yes Plan: - continue phenergan and zofran - continue IV fluids (9) Tachypnea Is this a current diagnosis for this admission?: Yes Plan: Resolved - Time Time Spent with patient: 15-24 minutes Anticipated Discharge Disposition: Home, Self Care Anticipated Discharge Timeframe: within 24 hours
[2020-11-15] MEDS: ONDANSETRON HCL INJ/PF 4 MG/2 ML SDV IV PRN (15:27)
[2020-11-15] MEDS ORDERED: IVERMECTIN 3 MG TABLET PO ONE (16:00)
[2020-11-15] MEDS ORDERED: LORAZEPAM INJ 2 MG/1 ML VIAL IV ONE (16:18)
[2020-11-15] MEDS: ZINC SULFATE 220 MG CAPSULE PO SCH (18:02)
[2020-11-15] MEDS: ASCORBIC ACID 500 MG TABLET PO SCH (18:02)
[2020-11-15 19:18] LABS: ANION GAP 13 (5-19); BLOOD UREA NITROGEN 41 mg/dL (7-20); CALCIUM 10.1 mg/dL (8.4-10.2); CARBON DIOXIDE 18 mmol/L (22-30); CHLORIDE 118 mmol/L (98-107); GLUCOSE 128 mg/dL (75-110); POTASSIUM 5.2 mmol/L (3.6-5.0)
[2020-11-15] MEDS: SIMVASTATIN 10 MG TABLET PO SCH (21:44)
[2020-11-16] MEDS: 1/2 NORMAL SALINE 1,000 ML IV PRN ×2 (03:04→13:06)
[2020-11-16] MEDS: ONDANSETRON HCL INJ/PF 4 MG/2 ML SDV IV PRN (03:17)
[2020-11-16 09:13] LABS: MEAN CORPUSCULAR HGB CONC 32.5 g/dL (32.0-36.0); MEAN CORPUSCULAR VOLUME 80 fl (80-97); PLATELET COUNT 308 10^3/uL (150-450); RED BLOOD COUNT 4.61 10^6/uL (4.35-5.55); RED CELL DISTRIBUTION WIDTH 15.5 % (11.5-14.0); WHITE BLOOD COUNT 6.6 10^3/uL (4.0-10.5)
[2020-11-16 09:27] LABS: ALKALINE PHOSPHATASE 63 U/L (38-126); ANION GAP 16 (5-19); ASPARTATE AMINO TRANSFERASE 57 U/L (17-59); BILIRUBIN,DIRECT 0.3 mg/dL (0.0-0.4); BILIRUBIN,TOTAL 0.5 mg/dL (0.2-1.3); BLOOD UREA NITROGEN 33 mg/dL (7-20); CARBON DIOXIDE 16 mmol/L (22-30); CHLORIDE 117 mmol/L (98-107); GLUCOSE 129 mg/dL (75-110); POTASSIUM 4.4 mmol/L (3.6-5.0); TOTAL PROTEIN 7.7 g/dL (6.3-8.2)
[2020-11-16] MEDS: ASCORBIC ACID 500 MG TABLET PO SCH ×2 (10:14→17:37)
[2020-11-16] MEDS: HYDROCHLOROTHIAZIDE 25 MG TABLET PO SCH (10:15)
[2020-11-16] MEDS: AMLODIPINE BESYLATE 10 MG TABLET PO SCH (10:15)
[2020-11-16] MEDS: ZINC SULFATE 220 MG CAPSULE PO SCH (10:16)
[2020-11-16] MEDS: TAMSULOSIN HCL 0.4 MG CAP.SR.24H PO SCH (10:16)
[2020-11-16] MEDS: ENOXAPARIN SODIUM INJ 40 MG/0.4 ML DISP.SYRIN SUBCUT SCH (10:18)
[2020-11-16 10:28] LABS: ABSOLUTE LYMPHOCYTES# (MANUAL) 1.1 10^3/uL (0.5-4.7); ABSOLUTE MONOCYTES # (MANUAL) 0.8 10^3/uL (0.1-1.4); BASOPHILS % (MANUAL) 0 % (0-2); EOSINOPHILS % (MANUAL) 0 % (0-6); LYMPHOCYTES % (MANUAL) 17 % (13-45); MONOCYTES % (MANUAL) 12 % (3-13); SEGMENTED NEUTROPHILS % (MAN) 71 % (42-78); TOTAL CELLS COUNTED 100
[2020-11-16 10:29] LABS: PLATELET COMMENT ADEQUATE; RBC MORPHOLOGY COMMENT NORMO-CYTIC/CHROMIC
[2020-11-16] MEDS: CHOLECALCIFEROL (D3) 1,000 UNIT (25 MCG) TABLET PO SCH (13:33)
[2020-11-16] MEDS ORDERED: DEXTROSE 5%-WATER 1000 ML 1,000 ML IV PRN (18:10)
--- NOTE | 2020-11-16 18:18 | PDOC PROGRESS REPORT ---
Subjective Date:: 11/16/20 Subjective:: He generally feels well. Not eating much at all. Denies respiratory symptoms a t this time. Still quite fatigued. Reason For Visit: DEHYDRATION, NIKOLE Physical Exam Vital Signs: Temp Pulse Resp BP Pulse Ox 98.7 F 81 16 154/84 H 96 11/16/20 15:10 11/16/20 17:33 11/16/20 17:33 11/16/20 15:10 11/16/20 17:33 Intake & Output 11/15/20 11/16/20 11/17/20 06:59 06:59 06:59 Intake Total 3000 2990 1118 Output Total 550 3125 750 Balance 2450 -135 368 Weight 87.8 kg 87.9 kg General appearance: PRESENT: no acute distress, cooperative Neck exam: ABSENT: JVD Respiratory exam: PRESENT: clear to auscultation ellen, symmetrical, unlabored. ABSENT: tachypnea, wheezes Cardiovascular exam: PRESENT: RRR, +S1, +S2. ABSENT: tachycardia GI/Abdominal exam: PRESENT: soft. ABSENT: tenderness Neurological exam: PRESENT: alert, awake, oriented to person Results Laboratory Results: 11/16/20 08:37 11/16/20 08:37 11/15/20 11/16/20 11/16/20 18:33 08:37 08:37 WBC 6.6 RBC 4.61 Hgb 12.0 L Hct 37.0 L MCV 80 MCH 26.0 L MCHC 32.5 RDW 15.5 H Plt Count 308 Seg Neutrophils % Not Reportable Sodium 148.7 H 148.9 H Potassium 5.2 H 4.4 Chloride 118 H 117 H Carbon Dioxide 18 L 16 L Anion Gap 13 16 BUN 41 H 33 H Creatinine 1.47 H 1.45 H Est GFR ( Amer) 58 L 59 L Glucose 128 H 129 H Calcium 10.1 10.0 Magnesium 3.1 H Total Bilirubin 0.5 AST 57 Alkaline Phosphatase 63 Total Protein 7.7 Albumin 4.0 11/14/20 11/15/20 16:08 06:07 Creatine Kinase 423 H Troponin I < 0.012 Impressions: Chest X-Ray 11/14/20 14:27 IMPRESSION: NO ACUTE FINDINGS. Assessment and Plan - Diagnosis (1) Acute kidney injury Is this a current diagnosis for this admission?: Yes (2) Hypernatremia Is this a current diagnosis for this admission?: Yes (3) COVID-19 Is this a current diagnosis for this admission?: Yes (4) Dehydration Is this a current diagnosis for this admission?: Yes (5) Diarrhea Qualifiers: Diarrhea type: infectious Qualified Code(s): A09 - Infectious gastroenteritis and colitis, unspecified Is this a current diagnosis for this admission?: Yes (6) HTN (hypertension) Qualifiers: Hypertension type: essential hypertension Qualified Code(s): I10 - Essential (primary) hypertension Is this a current diagnosis for this admission?: Yes (7) Leukocytosis Qualifiers: Leukocytosis type: unspecified Qualified Code(s): D72.829 - Elevated white blood cell count, unspecified Is this a current diagnosis for this admission?: Yes (8) Nausea and vomiting Qualifiers: Vomiting type: unspecified Vomiting Intractability: non-intractable Qualified Code(s): R11.2 - Nausea with vomiting, unspecified Is this a current diagnosis for this admission?: Yes (9) Tachypnea Is this a current diagnosis for this admission?: Yes - Plan Summary Summary: Doing well in terms of respiratory standpoint. He received ivermectin yesterday. He is still hyponatremic at 149 this morning. Free water deficit is 2.8 L. I did switch his fluids from half-normal saline to D5W. Also encouraged to drink adequate amount of p.o. fluids. We will check labs again tomorrow morning to see if his hypernatremia has resolved. In the meantime, continue antiemetics as needed. His diarrhea seems to be subsiding. - Time Time Spent with patient: Less than 15 minutes Anticipated Discharge Disposition: Home, Self Care Anticipated Discharge Timeframe: within 24 hours
[2020-11-16] MEDS: DEXTROSE 5%-WATER 1000 ML 1,000 ML IV PRN (21:03)
[2020-11-16] MEDS: SIMVASTATIN 10 MG TABLET PO SCH (21:03)
[2020-11-17 06:42] LABS: HEMATOCRIT 36.7 % (37.9-51.0); HEMOGLOBIN 12.1 g/dL (13.5-17.0); MEAN CORPUSCULAR HEMOGLOBIN 26.2 pg (27.0-33.4); MEAN CORPUSCULAR VOLUME 79 fl (80-97); RED BLOOD COUNT 4.63 10^6/uL (4.35-5.55); RED CELL DISTRIBUTION WIDTH 15.2 % (11.5-14.0); WHITE BLOOD COUNT 7.3 10^3/uL (4.0-10.5)
[2020-11-17 07:13] LABS: ALKALINE PHOSPHATASE 62 U/L (38-126); ANION GAP 12 (5-19); ASPARTATE AMINO TRANSFERASE 46 U/L (17-59); BILIRUBIN,DIRECT 0.3 mg/dL (0.0-0.4); BILIRUBIN,TOTAL 0.6 mg/dL (0.2-1.3); BLOOD UREA NITROGEN 21 mg/dL (7-20); CALCIUM 9.7 mg/dL (8.4-10.2); CARBON DIOXIDE 21 mmol/L (22-30); CHLORIDE 106 mmol/L (98-107); GLUCOSE 123 mg/dL (75-110); POTASSIUM 4.1 mmol/L (3.6-5.0); TOTAL PROTEIN 7.6 g/dL (6.3-8.2)
[2020-11-17 07:14] LABS: ABSOLUTE LYMPHOCYTES# (MANUAL) 1.8 10^3/uL (0.5-4.7); ABSOLUTE MONOCYTES # (MANUAL) 0.5 10^3/uL (0.1-1.4); BASOPHILS % (MANUAL) 0 % (0-2); EOSINOPHILS % (MANUAL) 1 % (0-6); LYMPHOCYTES % (MANUAL) 25 % (13-45); MONOCYTES % (MANUAL) 7 % (3-13); SEGMENTED NEUTROPHILS % (MAN) 67 % (42-78); TOTAL CELLS COUNTED 100
[2020-11-17 07:15] LABS: PLATELET CLUMPS PRESENT; PLATELET COMMENT ADEQUATE
[2020-11-17 07:18] LABS: ANISOCYTOSIS SLIGHT; HYPOCHROMASIA SLIGHT; PLATELET COUNT 338 10^3/uL (150-450)
[2020-11-17] MEDS: DEXTROSE 5%-WATER 1000 ML 1,000 ML IV PRN (07:58)
[2020-11-17] MEDS: HYDROCHLOROTHIAZIDE 25 MG TABLET PO SCH (07:59)
--- OUTSIDE RECORDS SUMMARY | 2020-11-17 09:11 | XMS REPORT ---
:1955 Author Organization [facility] [place] [facility] [place] [address] [place] [address] Care Team Providers Name Role Phone JOHANA ZEE Primary Care Physician Unavailable Allergies, Adverse Reactions, Alerts This patient has no known allergies or adverse reactions. Medications Ordered Filled Start Stop Current Ordering Indication Dosage Frequency Signature Comments Components Medication Medication Date Date Medication? Clinician (SIG) Name Name tramadol 50 2019-0 2020- No 50mg tramadol mg tablet 07-17 50 mg 50 mg by 00:00: 00:00 tablet 50 oral route. 00 :00 mg by oral route. amlodipine No 10mg amlodipine 10 mg 10 mg tablet 10 tablet 10 mg by oral mg by oral route. route. amoxicillin No amoxicilli 500 mg n 500 mg capsule capsule azithromyci No azithromyc n 250 mg in 250 mg tablet tablet finasteride No 5mg finasterid 5 mg tablet e 5 mg 5 mg by tablet 5 oral route. mg by oral route. hydrocodone No 1 Q6H hydrocodon 5 e 5 mg-acetamin mg-acetami ophen 325 nophen 325 mg tablet mg tablet Take 1 Take 1 tablet tablet every 6 every 6 hours by hours by oral route oral route as needed. as needed. levofloxaci No levofloxac n 500 mg in 500 mg tablet tablet lisinopril No lisinopril 20 20 mg-hydrochl mg-hydroch orothiazide lorothiazi 25 mg de 25 mg tablet tablet meloxicam No meloxicam 15 mg 15 mg tablet tablet oxycodone 5 No oxycodone mg tablet 5 mg tablet oxycodone-a No oxycodone- cetaminophe acetaminop n 5 mg-325 hen 5 mg tablet mg-325 mg tablet pantoprazol No pantoprazo e 40 mg le 40 mg tablet,bradley tablet,del yed release ayed release sildenafil No sildenafil 100 mg 100 mg tablet tablet simvastatin No 20mg simvastati 20 mg n 20 mg tablet 20 tablet 20 mg by oral mg by oral route. route. tamsulosin No .4mg tamsulosin 0.4 mg 0.4 mg capsule capsule 0.4 mg by 0.4 mg by oral route. oral route. tramadol 50 No 1 Q7H tramadol mg tablet 50 mg Take 1 tablet tablet as Take 1 needed by tablet as oral route needed by at bedtime. oral route at bedtime. cholecalcif No cholecalci pam ferol (vitamin (vitamin D3) 1,250 D3) 1,250 mcg (50,000 mcg unit) (50,000 capsule unit) TAKE 1 capsule CAPSULE BY TAKE 1 MOUTH ONCE CAPSULE BY A WEEK FOR MOUTH ONCE 30 DAYS A WEEK FOR 30 DAYS atenolol 50 No atenolol mg tablet 50 mg TAKE 1 tablet TABLET BY TAKE 1 MOUTH ONCE TABLET BY DAILY FOR MOUTH ONCE 30 DAYS DAILY FOR 30 DAYS ketorolac No ketorolac 0.4 % eye 0.4 % eye drops drops Problems Condition Condition Condition Status Onset Resolution Last Treatin g Comments Name Details Category Date Date Treatment Clinician Date History of History of Problem Active 2018-10 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 Left Total 00:00: knee Knee 00 arthroplast Arthroplast y y 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 00:00: 00 Hyperlipide Hyperlipide Problem Active soha soha 07-02 00:00: 00 Obstructive Obstructive Problem Active sleep apnea Sleep Apnea 07-02 syndrome Syndrome 00:00: 00 Hypertensiv Hypertensiv Problem Active e disorder e Disorder 07-02 00:00: 00 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 Disorder 00 Artificial Artificial Problem Active knee joint Knee Joint 07-02 present Present 00:00: 00 Pain in Pain in Problem Active left knee Left Knee 06-30 00:00: 00 History of History of Problem Active left total Left Total 06-30 knee Knee 00:00: replacement Replacement 00 Patient Patient Problem Active encounter Encounter status Status Procedures Procedure Date / Time Performed Performing Clinician Devichapis e CT, knee, w/o contrast 2020-07-20 00:00:00 XR, knee 2019-09-11 00:00:00 Total Knee Revision (Surg) 2019-07-24 00:00:00 Knee Surgery 2005-10-22 00:00:00 Results This patient has no known results. Assessments Condition Name Status Diagnosis Date Treating Clinici an History of revision of left total knee Active 2020-10-23 5 12:23:24 arthroplasty History of revision of left total knee Active 2 15:07:34 arthroplasty History of revision of left total knee Active 2020-06-23 9 14:10:57 arthroplasty Pain in left knee Active 2020-07-20 15:14:13 History of revision of left total knee Active 2020-03-22 5 14:00:56 arthroplasty History of revision of left total knee Active 2019-09-21 8 19:02:10 arthroplasty History of total knee arthroplasty Active 2019-10-09 07 :44:48 Knee pain Active 2019-10-09 07:44:48 Knee stiff Active 2019-10-09 07:44:48 Muscle weakness Active 2019-10-09 07:44:48 History of total knee arthroplasty Active 2019-10-07 09 :47:17 Knee pain Active 2019-10-07 09:47:17 Knee stiff Active 2019-10-07 09:47:17 Muscle weakness Active 2019-10-07 09:47:17 History of total knee arthroplasty Active 2019-10-02 09 :52:46 Knee pain Active 2019-10-02 09:52:46 Knee stiff Active 2019-10-02 09:52:46 Muscle weakness Active 2019-10-02 09:52:46 History of total knee arthroplasty Active 2019-09-30 11 :48:29 Knee pain Active 2019-09-30 11:48:29 Knee stiff Active 2019-09-30 11:48:29 Muscle weakness Active 2019-09-30 11:48:29 History of total knee arthroplasty Active 2019-09-25 08 :49:30 Knee pain Active 2019-09-25 08:49:30 Knee stiff Active 2019-09-25 08:49:30 Muscle weakness Active 2019-09-25 08:49:30 History of total knee arthroplasty Active 2019-09-23 08 :57:47 Knee pain Active 2019-09-23 08:57:47 Knee stiff Active 2019-09-23 08:57:47 Muscle weakness Active 2019-09-23 08:57:47 History of total knee arthroplasty Active 2019-09-16 10 :13:13 Knee pain Active 2019-09-16 10:13:13 Knee stiff Active 2019-09-16 10:13:13 Muscle weakness Active 2019-09-16 10:13:13 History of revision of left total knee Active 2019-08-23 1 10:57:11 arthroplasty History of total knee arthroplasty Active 2019-09-02 10 :32:32 Knee pain Active 2019-09-02 10:32:32 Knee stiff Active 2019-09-02 10:32:32 Muscle weakness Active 2019-09-02 10:32:32 History of total knee arthroplasty Active 2019-08-28 08 :41:46 Knee pain Active 2019-08-28 08:41:46 Knee stiff Active 2019-08-28 08:41:46 Muscle weakness Active 2019-08-28 08:41:46 History of total knee arthroplasty Active 2019-08-26 08 :51:10 Knee pain Active 2019-08-26 08:51:10 Knee stiff Active 2019-08-26 08:51:10 Muscle weakness Active 2019-08-26 08:51:10 History of total knee arthroplasty Active 2019-08-20 13 :34:01 Knee pain Active 2019-08-20 13:34:01 Knee stiff Active 2019-08-20 13:34:01 Muscle weakness Active 2019-08-20 13:34:01 History of total knee arthroplasty Active 2019-08-12 11 :37:22 Knee pain Active 2019-08-12 11:37:22 Knee stiff Active 2019-08-12 11:37:22 Muscle weakness Active 2019-08-12 11:37:22 Knee stiff Active 2019-08-08 08:34:13 Muscle weakness Active 2019-08-08 08:34:13 History of total knee arthroplasty Active 2019-08-08 08 :34:13 Knee pain Active 2019-08-08 08:34:13 History of total knee arthroplasty Active 2019-08-05 12 :58:47 Knee pain Active 2019-08-05 12:58:47 Knee stiff Active 2019-08-05 12:58:47 Muscle weakness Active 2019-08-05 12:58:47 History of total knee arthroplasty Active 2019-07-31 14 :07:22 Knee pain Active 2019-07-31 14:07:39 Knee stiff Active 2019-07-31 14:07:51 Muscle weakness Active 2019-07-31 14:08:02 Encounters Start End Encounter Admission Attending Care Care Encounter Date/Time Date/Time Type Type Clinicians Facility Department ID 2020-11-09 2020-11-09 Russell Norris [facility] [id number] 00:00:00 00:00:00 MD Jani: Harrison frye , P.A. [id number] [address] [place] [id number], Ph. 2020-08-24 2020-08-24 Russell NelsonOrt [facility] [id number] 00:00:00 00:00:00 MD Jani: Harrison frye , P.A. [id number] [address] [place] [phone], Ph. 2020-07-20 2020-07-20 Russell NelsonOrt [facility] 9089 [id number] 00:00:00 00:00:00 MD Jani: Harrison frye , P.A. [id number] [address] [place] [address], Ph. 2020-05-07 2020-05-07 Russell NelsonOrt [facility] 9089 [id number] 00:00:00 00:00:00 MD Jani: Harrison frye , P.A. [id number] [address] [place] [phone], Ph. 2019-11-04 2019-11-04 Russell NelsonOrt [facility] 9089 [id number] 00:00:00 00:00:00 MD Jani: Harrison frye , P.A. [id number] [address] [place] [address], Ph. 2019-10-09 2019-10-09 Yvrose Norris [facility] 9089 [id number] 00:00:00 00:00:00 uday Guerrero P.A. , P.A. [id number] TRAUMA DOCTOR: [address] [place], [place] [address] [place] [address], Ph. 2019-10-07 2019-10-07 Yvrose Norris [facility] 9089 [id number] 00:00:00 00:00:00 uday Guerrero P.A. , P.A. [id number] TRAUMA DOCTOR: [address] [facility] [address] [place] [address], Ph. 2019-10-02 2019-10-02 Katelyn Norris [facility] 9089 [id number] 00:00:00 00:00:00 uday Carroll P.A. , P.A. [id number] PT: [address] [facility] [address] [place] [address], Ph. 2019-09-30 2019-09-30 Katelyn Norris [facility] 9089 [id number] 00:00:00 00:00:00 uday Carroll P.A. , P.A. [id number] PT: [address] [facility], [place] [address], Ph. 2019-09-25 2019-09-25 Y[facility] 9089 [id number] 00:00:00 00:00:00 uday Guerrero P.A. , P.A. [id number] TRAUMA DOCTOR: [address] [facility] [address], [place] [address], Ph. 2019-09-23 2019-09-23 [facility] 9089 [id number] 00:00:00 00:00:00 uday Carroll P.A. , P.A. [id number] PT: [address] [facility], [place] [address], Ph. 2019-09-16 2019-09-16 Katelyn Norris [facility] 9089 [id number] 00:00:00 00:00:00 uday Carroll P.A. , P.A. [id number] PT: [address] [facility] [address], [place] [address], Ph. 2019-09-11 2019-09-11 [facility] LeslieOrt [facility] 9089 [id number] 00:00:00 00:00:00 MD Jani: Harrison frye , P.A. [id number] [address] [place] [phone], Ph. 2019-09-02 2019-09-02 Yvrose [facility] 9089 [id number] 00:00:00 00:00:00 uday Guerrero P.A. , P.A. [id number] TRAUMA DOCTOR: [address] [facility] [address], [place] [address], Ph. 2019-08-28 2019-08-28 Yvrose [facility] 9089 [id number] 00:00:00 00:00:00 uday Guerrero P.A. , P.A. [id number] TRAUMA DOCTOR: [address] [facility] [address], [place] [address], Ph. 2019-08-26 2019-08-26 [facility] 9089 [id number] 00:00:00 00:00:00 uday Guerrero P.ABrooklyn , P.A. [id number] TRAUMA DOCTOR: [address] [address], [place] [address], Ph. 2019-08-20 2019-08-20 Katelyn [facility] 9089 [id number] 00:00:00 00:00:00 uday Carroll P.A. , P.A. [id number] PT: [address] [address], [place] [address], Ph. 2019-08-12 2019-08-12 [facility] 9089 [id number] 00:00:00 00:00:00 uday Carroll P.A. , P.A. [id number] PT: [address] [address], Ph. 2019-08-08 2019-08-08 Katelyn [facility] 9089 [id number] 00:00:00 00:00:00 uday Carroll P.A. , P.A. [id number] PT: [address] [address], Ph. 2019-08-05 2019-08-05 [facility] [id number] 00:00:00 00:00:00 DPT: [id number] Audrey fryeABrooklyn , P.A. 322[address] [place] [address], Ph. 2019-07-31 2019-07-31 Katelyn [facility] 9089 [id number] 00:00:00 00:00:00 uday Carroll P.A. , P.A. [id number] PT: [address] [address], Ph. Immunizations Ordered Immunization Filled Immunization Date Status Commen ts Refusal Reason Name Name influenza, 2020-06-22 Completed injectable, 00:00:00 quadrivalent pneumococcal, 2018-10-10 Completed unspecified 00:00:00 formulation influenza, 2018-08-02 Completed injectable, 00:00:00 quadrivalent Plan of Treatment Planned Activity Planned Date Details Comments Future Appointment 2022-11-09 00:00:00 Ciro Hlyton, [facility] [place] [address] Social History Smoking Status Start Date Stop Date Never Smoker Vital Signs Vital Name Observation Time Observation Value Comments Height 2020-11-09 00:00:00 66 [in_i] BMI (Body Mass Index) 2020-11-09 00:00:00 32.6 kg/m2 Body Weight 2020-11-09 00:00:00 202 [lb_av] Height 2020-08-24 00:00:00 66 [in_i] BMI (Body Mass Index) 2020-08-24 00:00:00 32.6 kg/m2 Body Weight 2020-08-24 00:00:00 202 [lb_av] Height 2020-07-20 00:00:00 66 [in_i] BMI (Body Mass Index) 2020-07-20 00:00:00 32.6 kg/m2 Body Weight 2020-07-20 00:00:00 202 [lb_av] Height 2020-05-07 00:00:00 66 [in_i] BMI (Body Mass Index) 2020-05-07 00:00:00 32.6 kg/m2 Body Weight 2020-05-07 00:00:00 202 [lb_av] Height 2019-11-04 00:00:00 66 [in_i] BMI (Body Mass Index) 2019-11-04 00:00:00 32.6 kg/m2 Body Weight 2019-11-04 00:00:00 202 [lb_av] Height 2019-09-11 00:00:00 66 [in_i] BMI (Body Mass Index) 2019-09-11 00:00:00 32.6 kg/m2 Body Weight 2019-09-11 00:00:00 202 [lb_av] Hospital Discharge Instructions 1. History of revision of left total knee arthroplasty Discussion Note: None recorded. Patient educational handouts: No information available.1. History of revision of left total knee arthroplasty knee: exercises Discussion Note: None recorded.1. History of revision of left total knee arthroplasty CT, knee, w/o contrast hydrocodone 5 mg-acetaminophen 325 mg tablet 2. Pain in left knee Discussion Note: None recorded. Patient educational handouts: No information available.1. History of revision of left total knee arthroplasty Discussion Note: None recorded. Patient educational handouts: No information available.
[2020-11-17] MEDS: ENOXAPARIN SODIUM INJ 40 MG/0.4 ML DISP.SYRIN SUBCUT SCH (09:45)
[2020-11-17] MEDS: AMLODIPINE BESYLATE 10 MG TABLET PO SCH (09:45)
[2020-11-17] MEDS: ASCORBIC ACID 500 MG TABLET PO SCH (09:45)
[2020-11-17] MEDS: TAMSULOSIN HCL 0.4 MG CAP.SR.24H PO SCH (09:45)
[2020-11-17] MEDS: CHOLECALCIFEROL (D3) 1,000 UNIT (25 MCG) TABLET PO SCH (09:45)
[2020-11-17] MEDS: ZINC SULFATE 220 MG CAPSULE PO SCH (09:45)
[2020-11-17 12:16] VITALS: BP 117/88
--- NOTE | 2020-11-17 12:29 | PDOC DISCHARGE SUMMARY ---
Impression - Admit/DC Date/PCP Admission Date/Primary Care Provider: 11/14/20 18:34 LELE PADILLA Discharge Date: 11/17/20 - Discharge Diagnosis (1) Acute kidney injury Is this a current diagnosis for this admission?: Yes (2) Hypernatremia Is this a current diagnosis for this admission?: Yes (3) COVID-19 Is this a current diagnosis for this admission?: Yes (4) Dehydration Is this a current diagnosis for this admission?: Yes (5) Diarrhea Is this a current diagnosis for this admission?: Yes (6) HTN (hypertension) Is this a current diagnosis for this admission?: Yes (7) Leukocytosis Is this a current diagnosis for this admission?: Yes (8) Nausea and vomiting Is this a current diagnosis for this admission?: Yes (9) Tachypnea Is this a current diagnosis for this admission?: Yes - Assessment Summary: Doing well in terms of respiratory standpoint. He received ivermectin yesterday. He is still hyponatremic at 149 this morning. Free water deficit is 2.8 L. I did switch his fluids from half-normal saline to D5W. Also encouraged to drink adequate amount of p.o. fluids. We will check labs again tomorrow morning to see if his hypernatremia has resolved. In the meantime, continue antiemetics as needed. His diarrhea seems to be subsiding. - Additional Information Resuscitation Status: Full Code Discharge Diet: Regular Discharge Activity: Slowly Increase Activity Referrals: LELE PADILLA MD [Primary Care Provider] - 11/24/20 10:45 am Prescriptions: Ascorbic Acid [Vitamin C 500 mg Tablet] 1,000 mg PO BID #60 tablet Cholecalciferol (Vitamin D3) [Vitamin D3 1000 Unit Tablet] 2,000 unit PO DAILY #40 tablet Zinc Sulfate [Zinc-220 Capsule] 220 mg PO DAILY #20 capsule Ondansetron [Zofran Odt 4 mg Tablet] 1 tab PO Q8HP PRN #10 tab.rapdis PRN Reason: Home Medications: Amlodipine Besylate [Norvasc 10 mg Tablet] 10 mg PO DAILY #30 tablet 07/27/17 Tamsulosin HCl [Flomax 0.4 mg Cap.sr] 0.4 mg PO DAILY 11/10/19 Lisinopril/Hydrochlorothiazide [Lisinopril-Hctz 20-25 mg Tab] 1 tab PO DAILY 11/15/20 Simvastatin 20 mg PO DAILY 11/15/20 Ascorbic Acid [Vitamin C 500 mg Tablet] 1,000 mg PO BID #60 tablet 11/17/20 Cholecalciferol (Vitamin D3) [Vitamin D3 1000 Unit Tablet] 2,000 unit PO DAILY #40 tablet 11/17/20 Ondansetron [Zofran Odt 4 mg Tablet] 1 tab PO Q8HP PRN #10 tab.rapdis 11/17/20 Zinc Sulfate [Zinc-220 Capsule] 220 mg PO DAILY #20 capsule 11/17/20 History of Present Illiness History of Present Illness: According to admitting provider: LELE WALSH JR is a 65 year old male, PMH of HTN, who came in the ED today due to nausea, vomiting and weakness. Symptoms started 1 week prior to admission when he developed Nausea/vomiting and diarrhea about 3-4 episodes per day of both vomiting and diarrhea. He denied eating any unusual food and no one else in the family is having similar symptoms. No recent abx use, no recent travel. He denied any abdominal pain, fever. Vomitus is non bloody. He took paracetamol and anti diarrheal meds to no avail. He got progressively weaker hence he came to the ED. In the ED, VS 150/72, HR 77, RR 34, T 98.2, O2sat 98%. CBC 12.8, hgb 12.5. CMP showed hypernatremia 148, crea 2.48, Ca 10.4. Patient was given a bolus of LR and NS and Hospitalist service was called for further evla and management. Hospital Course Hospital Course: Patient was admitted for treatment of COVID-19 infection. Patient was experienc ing constitutional symptoms including nausea vomiting, fatigue amongst others. Patient was noted to have dehydration on presentation. Chest x-ray was unremarkable and showed no evidence of pneumonia. Patient was not hypoxic. Patient was noted to have an NIKOLE secondary to dehydration. Patient was given IV fluids. He did receive a dose of ivermectin. He was noted to become hypernatremic and was placed on D5 W. His hypernatremia improved and has currently resolved today. Patient has nausea vomiting has improved and patient is now eating and drinking okay. He is encouraged to take lots of p.o. fluids. His respiratory status is also normalized and he is no longer tachypneic. His NIKOLE has also resolved. Patient is stable for discharge. He states that he has no ambulatory difficulties. He is ready for discharge and being discharged with zinc, vitamin supplements. Physical Exam Vital Signs: Temp Pulse Resp BP Pulse Ox 98.4 F 105 H 18 159/77 H 97 11/17/20 12:11 11/17/20 12:11 11/17/20 12:11 11/17/20 12:11 11/17/20 12:11 Intake & Output 11/16/20 11/17/20 11/18/20 06:59 06:59 06:59 Intake Total 2990 1850 1300 Output Total 3125 2000 325 Balance -135 -150 975 Weight 87.9 kg 87.9 kg General appearance: PRESENT: no acute distress, cooperative Neck exam: ABSENT: JVD Respiratory exam: PRESENT: clear to auscultation ellen, unlabored Cardiovascular exam: PRESENT: +S1, +S2. ABSENT: tachycardia GI/Abdominal exam: PRESENT: soft. ABSENT: tenderness Neurological exam: PRESENT: alert, awake, oriented to person, oriented to place, oriented to time Results Laboratory Results: WBC 7.3 10^3/uL (4.0-10.5) 11/17/20 06:00 RBC 4.63 10^6/uL (4.35-5.55) 11/17/20 06:00 Hgb 12.1 g/dL (13.5-17.0) L 11/17/20 06:00 Hct 36.7 % (37.9-51.0) L 11/17/20 06:00 MCV 79 fl (80-97) L 11/17/20 06:00 MCH 26.2 pg (27.0-33.4) L 11/17/20 06:00 MCHC 33.0 g/dL (32.0-36.0) 11/17/20 06:00 RDW 15.2 % (11.5-14.0) H 11/17/20 06:00 Plt Count 338 10^3/uL (150-450) 11/17/20 06:00 Lymph % (Auto) Not Reportable 11/17/20 06:00 Owen % (Auto) Not Reportable 11/17/20 06:00 Eos % (Auto) Not Reportable 11/17/20 06:00 Baso % (Auto) Not Reportable 11/17/20 06:00 Absolute Neuts (auto) Not Reportable 11/17/20 06:00 Absolute Lymphs (auto) Not Reportable 11/17/20 06:00 Absolute Monos (auto) Not Reportable 11/17/20 06:00 Absolute Eos (auto) Not Reportable 11/17/20 06:00 Absolute Basos (auto) Not Reportable 11/17/20 06:00 Total Counted 100 11/17/20 06:00 Band Neutrophils % 1 % (3-5) L 11/14/20 16:08 Seg Neutrophils % Not Reportable 11/17/20 06:00 Seg Neuts % (Manual) 67 % (42-78) 11/17/20 06:00 Lymphocytes % (Manual) 25 % (13-45) 11/17/20 06:00 Monocytes % (Manual) 7 % (3-13) 11/17/20 06:00 Eosinophils % (Manual) 1 % (0-6) 11/17/20 06:00 Basophils % (Manual) 0 % (0-2) 11/17/20 06:00 Abs Neuts (Manual) 4.9 10^3/uL (1.7-8.2) 11/17/20 06:00 Abs Lymphs (Manual) 1.8 10^3/uL (0.5-4.7) 11/17/20 06:00 Abs Monocytes (Manual) 0.5 10^3/uL (0.1-1.4) 11/17/20 06:00 Absolute Eos (Manual) 0.1 10^3/uL (0.0-0.6) 11/17/20 06:00 Abs Basophils (Manual) 0.0 10^3/uL (0.0-0.2) 11/17/20 06:00 Clumped Platelets PRESENT 11/17/20 06:00 Platelet Comment ADEQUATE 11/17/20 06:00 Hypochromasia SLIGHT 11/17/20 06:00 Anisocytosis SLIGHT 11/17/20 06:00 Microcytosis SLIGHT 11/17/20 06:00 RBC Morph Comment NORMO-CYTIC/CHROMIC 11/16/20 08:37 Carbonic Acid 0.83 mmol/L (1.05-1.35) L 11/14/20 20:14 HCO3/H2CO3 Ratio 21:1 11/14/20 20:14 ABG pH 7.43 (7.35-7.45) 11/14/20 20:14 ABG pCO2 27.6 mmHg (35-45) L 11/14/20 20:14 ABG pO2 79.0 mmHg (80-100) L 11/14/20 20:14 ABG HCO3 17.9 mmol/L (20-24) L 11/14/20 20:14 ABG Total CO2 18.8 mmol/L (23-27) L 11/14/20 20:14 ABG O2 Saturation 96.2 % (94-98) 11/14/20 20:14 ABG Base Excess -5.2 mmol/L 11/14/20 20:14 FiO2 ROOM AIR 11/14/20 20:14 Sodium 139.1 mmol/L (137-145) 11/17/20 06:00 Potassium 4.1 mmol/L (3.6-5.0) 11/17/20 06:00 Chloride 106 mmol/L (98-107) 11/17/20 06:00 Carbon Dioxide 21 mmol/L (22-30) L 11/17/20 06:00 Anion Gap 12 (5-19) 11/17/20 06:00 BUN 21 mg/dL (7-20) H 11/17/20 06:00 Creatinine 1.19 mg/dL (0.52-1.25) 11/17/20 06:00 Est GFR ( Amer) > 60 (>60) 11/17/20 06:00 Est GFR (MDRD) Non-Af > 60 (>60) 11/17/20 06:00 Glucose 123 mg/dL (75-110) H 11/17/20 06:00 Lactic Acid 2.3 mmol/L (0.7-2.1) H 11/14/20 19:35 Calcium 9.7 mg/dL (8.4-10.2) 11/17/20 06:00 Magnesium 2.5 mg/dL (1.6-2.3) H 11/17/20 06:00 Total Bilirubin 0.6 mg/dL (0.2-1.3) 11/17/20 06:00 Direct Bilirubin 0.3 mg/dL (0.0-0.4) 11/17/20 06:00 Neonat Total Bilirubin Not Reportable 11/17/20 06:00 Neonat Direct Bilirubin Not Reportable 11/17/20 06:00 Neonat Indirect Bili Not Reportable 11/17/20 06:00 AST 46 U/L (17-59) 11/17/20 06:00 ALT 38 U/L (<50) 11/17/20 06:00 Alkaline Phosphatase 62 U/L (38-126) 11/17/20 06:00 Creatine Kinase 423 U/L (55-170) H 11/15/20 06:07 Troponin I < 0.012 ng/mL 11/14/20 16:08 Total Protein 7.6 g/dL (6.3-8.2) 11/17/20 06:00 Albumin 4.0 g/dL (3.5-5.0) 11/17/20 06:00 Urine Color YELLOW 11/14/20 16:08 Urine Appearance CLEAR 11/14/20 16:08 Urine pH 5.0 (5.0-9.0) 11/14/20 16:08 Ur Specific Padroni 1.014 11/14/20 16:08 Urine Protein 30 mg/dL (NEGATIVE) H 11/14/20 16:08 Urine Glucose (UA) NEGATIVE mg/dL (NEGATIVE) 11/14/20 16:08 Urine Ketones NEGATIVE mg/dL (NEGATIVE) 11/14/20 16:08 Urine Blood SMALL (NEGATIVE) H 11/14/20 16:08 Urine Nitrite NEGATIVE (NEGATIVE) 11/14/20 16:08 Urine Bilirubin NEGATIVE (NEGATIVE) 11/14/20 16:08 Urine Urobilinogen NEGATIVE mg/dL (<2.0) 11/14/20 16:08 Ur Leukocyte Esterase NEGATIVE (NEGATIVE) 11/14/20 16:08 Urine WBC (Auto) 1 /HPF 11/14/20 16:08 Urine RBC (Auto) 1 /HPF 11/14/20 16:08 Squamous Epi Cells Auto <1 /HPF 11/14/20 16:08 Urine Mucus (Auto) RARE /LPF 11/14/20 16:08 Urine Ascorbic Acid NEGATIVE (NEGATIVE) 11/14/20 16:08 Vaibhav Human Metapneumo PCR NOT DETECTED (NOT DETECT) 11/14/20 20:15 Adenovirus (PCR) NOT DETECTED (NOT DETECT) 11/14/20 20:15 B. pertussis DNA (PCR) NOT DETECTED (NOT DETECT) 11/14/20 20:15 B.parapertussis DNA PCR NOT DETECTED (NOT DETECT) 11/14/20 20:15 C. pneumoniae DNA (PCR) NOT DETECTED (NOT DETECT) 11/14/20 20:15 Coronavirus OC43 (PCR) NOT DETECTED (NOT DETECT) 11/14/20 20:15 Coronavirus HKU1 (PCR) NOT DETECTED (NOT DETECT) 11/14/20 20:15 Coronavirus 229E (PCR) NOT DETECTED (NOT DETECT) 11/14/20 20:15 Coronavirus NL63 (PCR) NOT DETECTED (NOT DETECT) 11/14/20 20:15 Influenza A (H1) PCR NOT DETECTED (NOT DETECT) 11/14/20 20:15 Influ A (H1N1/09) PCR NOT DETECTED (NOT DETECT) 11/14/20 20:15 Influenza A (H3) PCR NOT DETECTED (NOT DETECT) 11/14/20 20:15 Influenza Type A (PCR) NOT DETECTED (NOT DETECT) 11/14/20 20:15 Influenza Type B (PCR) NOT DETECTED (NOT DETECT) 11/14/20 20:15 M. pneumoniae (PCR) NOT DETECTED (NOT DETECT) 11/14/20 20:15 Parainfluenza 1 (PCR) NOT DETECTED (NOT DETECT) 11/14/20 20:15 Parainfluenza 2 (PCR) NOT DETECTED (NOT DETECT) 11/14/20 20:15 Parainfluenza 3 (PCR) NOT DETECTED (NOT DETECT) 11/14/20 20:15 Parainfluenza 4 (PCR) NOT DETECTED (NOT DETECT) 11/14/20 20:15 RSV (PCR) NOT DETECTED (NOT DETECT) 11/14/20 20:15 Entero/Rhino (PCR) NOT DETECTED (NOT DETECT) 11/14/20 20:15 SARS-CoV-2 (PCR) DETECTED (NOT DETECT) H 11/14/20 20:15 11/14/20 16:08 Troponin I < 0.012 Impressions: Chest X-Ray 11/14/20 14:27 IMPRESSION: NO ACUTE FINDINGS. Plan Time Spent: Less than 30 Minutes Stroke Is this a Stroke Patient?: No Acute Heart Failure Is this a Heart Failure Patient?: No
== END 2020-11-17 14:00 | disposition home or self-care (01) | DRG 178 ==
LOC: ER 13:53 → EH 18:34 → 4S 22:50
PROVIDERS: ADMIT Internal Medicine; ATTEND Internal Medicine
DX: U07.1 COVID-19 (principal); N17.9 Acute kidney failure, unspecified; E87.0 Hyperosmolality and hypernatremia; A09 Infectious gastroenteritis and colitis, unspecified; D72.829 Elevated white blood cell count, unspecified; E86.0 Dehydration; R06.82 Tachypnea, not elsewhere classified; R11.2 Nausea with vomiting, unspecified; I10 Essential (primary) hypertension; Z79.899 Other long term (current) drug therapy; Z79.82 Long term (current) use of aspirin
CPT/HCPCS: 36415; 36600; 71045; 80053; 81001; 82550; 82803; 83605; 83735; 84484; 85025; 93005; 93010; 96361; 96374; 99285; 0202U; C9803; J1650; J2060; J2405; J3490; J7030; J7060; J7120